=== PATIENT | female | born 1990 | race Caucasian/White ===

== ENCOUNTER → 2018-04-09 09:00 | Outpatient (CLI) | payer MEDICAID, SELFPAY ==
--- NOTE | 2018-04-09 09:00 | DT_ITS ---
This patient was seen during an EMR downtime April 09, 2018 - April 16, 2018. This patient may have a combination of paper and electronic documentation or all paper documentation. All documentation is viewable within the e-chart portion of [facility] for each patient visit.
[2018-04-24 13:54] LABS: HPV Reflexed? NOT INDICATED
== END ==
PROVIDERS: Visit Provider Nurse Practitioner Women's Health
DX: Z12.4 Encounter for screening for malignant neoplasm of cervix (principal)
CPT/HCPCS: 88175; G0145

== ENCOUNTER → 2018-05-02 09:26 | Outpatient (CLI) | payer MEDICAID, SELFPAY ==
--- NOTE | 2018-05-02 09:28 | US_ITS ---
STUDY: FIRST TRIMESTER OBSTETRICAL ULTRASOUND REASON FOR EXAM: Female, 27 years old. Pelvic pain and spotting with intercourse. LMP: 02/23/2018 TECHNIQUE: Transabdominal and transvaginal real-time examination with grayscale image documentation and Doppler color flow. PRIOR ULTRASOUND: None. FINDINGS: There is visualization of a single gestational sac in a normal intrauterine position. The mean sac diameter (MSD) measures 2.0, indicating an estimated gestational age (EGA) of 7 weeks, 0 days. The gestational sac is somewhat irregular in configuration. In addition to the yolk sac and pole that are identified there is an additional structure within the sac that extends from the wall measuring 0.9 x 1.5 cm this has an outer border similar to chorion and a hypoechoic nonvascular center. There is an additional hypoechoic area adjacent to the gestational sac measuring 2.2 x 0.9 x 0.6 cm consistent with a more typical of a subchorionic hemorrhage. There is a visualized yolk sac. The yolk sac measures 5.5 mm. There is visualization of the placenta. There is visualization of a live embryo. The crown-rump length (CRL) measures 0.61 cm, indicating an estimated gestational age (EGA) of 6 weeks, 3 days. There is demonstrated cardiac activity with a heart rate of 128 bpm. The estimated gestation age (EGA) by LMP is 9 weeks, 5 days. The estimated date of delivery (PITER) by LMP is 11/30/2018. The estimated gestation age (EGA) by US is 6 weeks, 5 days. The estimated date of delivery (PITER) by US is 12/21/2018. The uterus measures 10.6 x 7.8 x 6.7 cm. There is no demonstrated uterine fibroid. The cervix is closed. The right ovary measures 4.6 x 3.3 x 3.2 cm. There is a 3.1 x 2.6 x 1.4 cm complex cyst. There is no visualized right adnexal mass or complex lesion. The left ovary measures 2.8 x 2.1 x 1.4 cm. There is no left ovarian cyst. There is no visualized left adnexal mass or complex lesion. There is no fluid in the cul de sac. US/Transvaginal w/Preg US IMPRESSION: Single living intrauterine fetus of 6 weeks and 5 days by crown-rump length and gestational sac diameter with an PITER of 12/21/2018. heart rate 128 bpm. In addition to the visualized pole and yolk sac there is an additional that protrudes into the gestational sac measuring 0.9 x 1.5 cm, possibly a subchorionic hemorrhage. There is an additional hypoechoic area measuring 2.2 x 0.9 x 0.6 cm consistent with a more typical subchorionic hemorrhage. There is a 3.1 x 2.6 x 1.4 cm complex cyst of the right ovary. Normal left ovary. Minimal free fluid. No additional adnexal masses. Electronically Signed: Мария Dodd MD at 17:28 EDT , Service support ,
== END ==
PROVIDERS: Visit Provider Nurse Practitioner Women's Health
DX: R10.2 Pelvic and perineal pain (principal)
CPT/HCPCS: 76817

== ENCOUNTER → 2018-05-23 18:19 | Outpatient (CLI) | payer MEDICAID, SELFPAY ==
[2018-05-24 13:17] LABS: Chlamydia Trachomatis by PCR Negative (Negative)
[2018-05-24 13:18] LABS: Neisserai gonorrhoeae by PCR Negative (Negative); Probe Check PASS; Sample Adequacy Control PASS; Specimen Processing Control PASS
== END ==
PROVIDERS: Visit Provider Obstetrics & Gynecology
DX: Z34.81 Encounter for supervision of other normal pregnancy, first trimester (principal); Z34.90 Encounter for supervision of normal pregnancy, unspecified, unspecified trimester
CPT/HCPCS: 87086; 87491; 87591

== ENCOUNTER → 2018-06-20 11:31 | Outpatient (CLI) | payer MEDICAID, SELFPAY ==
[2018-06-20 12:39] LABS: Absolute Lymphocyte Count 1.89 X10^3/ul (0.83-4.51); Absolute Neutrophil Count 6.5 X10^3/uL (2.0-7.7); Basophil# 0.01 X10^3/uL; Basophil% 0.1 % (0-1); Eosinophil# 0.03 X10^3/uL; Eosinophils% 0.3 % (0-5); Hematocrit 33.3 % (37-47); Hemoglobin 11.4 g/dl (12.0-15.0); Lymphocyte # 1.89 X10^3/ul (4.0); Lymphocyte % 21.2 % (19-41); Mean Corp Hgb Conc 34.2 g/gl (32-36); Mean Corpuscular Hgb 31.5 pg (27.0-32.0); Mean Platelet Vol. 9.5 fl (6.2-12.0); Monocyte# 0.43 X10^3/uL; Monocyte% 4.8 % (0-10); Neutrophil # 6.52 X10^3/uL (2.7-7.7); Neutrophil % 73.3 % (47-70); Platelet Count 218 K/mm3 (150-450); RBC Distribution Width CV 12.6 % (11.6-14.6); RBC Distribution Width SD 40.9 fl (35.1-43.9); Red Blood Count 3.62 M/mm3 (4.2-5.4); White Blood Count 8.9 K/mm3 (4.4-11.0)
[2018-06-20 12:43] LABS: POSITIVE COUNT NO; POSITIVE DIFFERENTIAL NO; POSITIVE MORPHOLOGY NO
[2018-06-20 13:47] LABS: HIV - WCH Non-Reactive (Nonreactive); Rubella IgG 65.7 IU/mL
[2018-06-21 10:59] LABS: HEPATITIS B SURFACE AG Negative (Negative)
[2018-06-22 01:02] LABS: Rapid Plasmin Reagin (RPR) NONREACTIVE (NONREACTIVE)
== END ==
PROVIDERS: Visit Provider Obstetrics & Gynecology
DX: Z34.81 Encounter for supervision of other normal pregnancy, first trimester (principal)
CPT/HCPCS: 85025; 86592; 86703; 86762; 86850; 86900; 87340

== ENCOUNTER → 2018-07-19 12:41 | Outpatient (CLI) | payer MEDICAID, SELFPAY ==
[2018-07-22 03:06] LABS: AFP MoM Value 1.13 (.); AFP Value-EIA 51.9 ng/mL (.); Comment Report (.); DIA MoM Value 1.09 (.); DSR (By Age) 699 (.); DSR (Second Trimester) 10000 (.); Gestat. Age Based On As provided (.); Insulin Dep Diabetes No (.); hCG MoM 2.13 (.)
== END ==
PROVIDERS: Visit Provider Obstetrics & Gynecology
DX: Z82.0 Family history of epilepsy and other diseases of the nervous system (principal)
CPT/HCPCS: 36415; 82105; 82677; 84702; 86336

== ENCOUNTER → 2018-09-25 10:27 | Outpatient (CLI) | payer MEDICAID, SELFPAY ==
[2018-09-25 09:53] VITALS: BMI 29.5
[2018-09-25 10:59] LABS: ROM Internal Control Test YES-OK TO RESULT pt. (Internal QC); ROM Patient Test Negative (Negative)
== END ==
PROVIDERS: Visit Provider Nurse Practitioner Women's Health
DX: O42.90 Premature rupture of membranes, unspecified as to length of time between rupture and onset of labor, unspecified weeks of gestation (principal); Z3A.00 Weeks of gestation of pregnancy not specified
CPT/HCPCS: 84112

== ENCOUNTER 2018-11-19 18:40 | Outpatient (CLI) | payer MEDICAID, SELFPAY ==
[2018-11-14 10:47] VITALS: BMI 29.5
[2018-11-19 20:19] VITALS: BMI 30.1
[2018-11-19 20:52] LABS: Bacteria 0 SEEN /hpf (None Seen); Mucous, Urine 0 SEEN /hpf (<or=2+); Red Blood Cells-Urine 0 SEEN /hpf (0-5)
[2018-11-19 20:53] LABS: Color, Urine Straw (Yellow); Glucose, Dipstick Normal (Normal); Leukocyte Esterase-Dipstick Negative /ul (Negative); Nitrite-Dipstick Negative (Negative); Occult Blood-Urine Negative /ul (Negative); Protein-Dipstick Negative (Negative); Urine Bilirubin Dipstick Negative (Negative); Urine Clarity Clear (Clear); Urine Urobilinogen Normal (Normal); Urine pH 6.5 (5.0 - 8.0)
[2018-11-19 21:04] LABS: Ketone-Dipstick 150 mg/dl (Negative)
[2018-11-19 21:05] LABS: Squamous Epithelial Cells - UA 0-5 SEEN /hpf (5-10)
[2018-11-19 21:07] LABS: White Blood Cells 0-5 SEEN /hpf (0-5)
[2018-11-19] MEDS: Dextrose 5%-Lactated Ringers 1,000 ML 200 ML IV ×2 (22:06→23:10)
[2018-11-19 22:41] LABS: Absolute Lymphocyte Count 1.04 X10^3/ul (0.83-4.51); Absolute Neutrophil Count 8.3 X10^3/uL (2.0-7.7); Basophil# 0.01 X10^3/uL; Basophil% 0.1 % (0-1); Eosinophil# 0.01 X10^3/uL; Eosinophils% 0.1 % (0-5); Hemoglobin 10.9 g/dl (12.0-15.0); Lymphocyte # 1.04 X10^3/ul (4.0); Lymphocyte % 10.6 % (19-41); Mean Corpuscular Hgb 29.8 pg (27.0-32.0); Mean Corpuscular Volume 90.2 fL (81-99); Mean Platelet Vol. 9.9 fl (6.2-12.0); Monocyte# 0.37 X10^3/uL; Monocyte% 3.8 % (0-10); Neutrophil # 8.29 X10^3/uL (2.7-7.7); Neutrophil % 84.9 % (47-70); Platelet Count 168 K/mm3 (150-450); RBC Distribution Width CV 13.2 % (11.6-14.6); RBC Distribution Width SD 43.1 fl (35.1-43.9); Red Blood Count 3.66 M/mm3 (4.2-5.4); White Blood Count 9.8 K/mm3 (4.4-11.0)
[2018-11-19 22:42] LABS: POSITIVE COUNT NO; POSITIVE DIFFERENTIAL NO; POSITIVE MORPHOLOGY NO
[2018-11-19 23:15] LABS: Fibrinogen 439 mg/dl (203-444)
--- NOTE | 2018-11-20 01:44 | OB.TRI.NOTE ---
- Problem List (1) Vomiting Status: Acute (2) heart deceleration Status: Acute (3) Encounter for screening Status: Acute Comment: Negative QUAD marker screen - patient missed ech appt, nl anatomy scan (4) ASCUS favor benign Status: Acute (5) Family history of Willem-Sachs disease Status: Acute Comment: FOB is carrier- screen negative for patient (6) Tobacco use complicating Status: Acute Qualifiers: Comment: quit! (7) Supervision of normal Status: Acute Qualifiers: Comment: PRR PITER 12/23/18 Boy. PC Chay Chery Ethan boyfriend Vic (4 kids) History of Present Illness Date of Service: 11/20/18 Was patient seen by the physician?: Yes Reason For Visit: R/O LABOR Date of Service: 11/20/18 Final PITER: 12/23/18 Gestational age: 35 Weeks and 2 Days History of Present Illness: 27-year-old presents at 35 weeks with intractable nausea and vomiting throughout the day today. Her boyfriend was just diagnosed with influenza today. Patient states she had a low-grade temp at home but temperatures here are all normal. Patient is now able to tolerate clear liquids by mouth but had 2 questionable late decelerations on the monitor and therefore will be monitored overnight and will get some testing done in the morning and ultrasound. Patient denies any vaginal bleeding or loss of fluid admits good movement. She has some contractions. She denies any respiratory complaints Allergies Penicillins Adverse Reaction (Verified 11/19/18 20:22) Anaphylaxis amoxicillin Adverse Reaction (Severe, Uncoded 11/19/18 20:21) Anaphylaxis bactrim Adverse Reaction (Severe, Uncoded 11/19/18 20:21) Anaphylaxis ceclor Adverse Reaction (Severe, Uncoded 11/19/18 20:21) Anaphylaxis ciprofloxan Adverse Reaction (Severe, Uncoded 11/19/18 20:21) Anaphylaxis codiene Adverse Reaction (Severe, Uncoded 11/19/18 20:21) Anaphylaxis - Pertinent Past Medical History Surgical History: Past Surgical History (Last Reviewed 11/14/18 @ 10:47 by Yue Paez) Cyst, dermoid, leg Ear canal mass Pertinent Past Medical History: ROS: General: co low grade fever Telephone Service Adviser: see hpi GI: see hpi Laboratory Studies: Laboratory Tests 11/19/18 11/19/18 11/19/18 Range/Units 22:00 22:00 20:45 WBC 9.8 (4.4-11.0) K/mm3 RBC 3.66 L (4.2-5.4) M/mm3 Hgb 10.9 L (12.0-15.0) g/dl Hct 33.0 L (37-47) % MCV 90.2 (81-99) fL MCH 29.8 (27.0-32.0) pg MCHC 33.0 (32-36) g/gl RDW 13.2 (11.6-14.6) % RDW Differential 43.1 (35.1-43.9) fl Plt Count 168 (150-450) K/mm3 MPV 9.9 (6.2-12.0) fl Immature Gran % (Auto) 0.500 (0.0-0.9) % Neut % (Auto) 84.9 H (47-70) % Lymph % (Auto) 10.6 L (19-41) % [place] % (Auto) 3.8 (0-10) % Eos % (Auto) 0.1 (0-5) % Baso % (Auto) 0.1 (0-1) % Absolute Neuts (auto) 8.3 H (2.0-7.7) X10^3/uL Absolute Lymphs (auto) 1.04 (0.83-4.51) X10^3/ul Total Counted Not Reportable Fibrinogen 439 (203-444) mg/dl Urine Color Straw (Yellow) Urine Clarity Clear (Clear) Urine pH 6.5 (5.0 - 8.0) Ur Specific [place] 1.010 (1.002-1.030) Urine Protein Negative (Negative) mg/dl Urine Glucose (UA) Normal (Normal) mg/dl Urine Ketones 150 H (Negative) mg/dl Urine Occult Blood Negative (Negative) /ul Urine Nitrite Negative (Negative) Urine Bilirubin Negative (Negative) mg/dL Urine Urobilinogen Normal (Normal) mg/dl Ur Leukocyte Esterase Negative (Negative) /ul Urine RBC 0 SEEN (0-5) /hpf Urine WBC 0-5 SEEN (0-5) /hpf Ur Squamous Epith Cells 0-5 SEEN (5-10) /hpf Urine Bacteria 0 SEEN (None Seen) /hpf Urine Mucus 0 SEEN (<or=2+) /hpf Review of Systems Constitutional: Reports: Fever Gastrointestinal: Reports: Abdominal Pain, Nausea, Vomiting Genitourinary: Denies: Dysuria Physical Exam General: Alert, Cooperative, No apparent distress Cardiovascular: Regular rate Abdomen: Soft, Non Tender, Gravid Cervix Dilation (cm): 1 NST - FHR Rate Baby A Baseline: 140 Variability:: Moderate Accelerations:: 15 x 15 Decelerations:: Late NST Reactive:: Yes FHR Category:: Category I Uterine Activity:: irregular Impression/Plan 27 yo @ 35w5d presents with nausea and vomiting, influenza exposure, right-sided abdominal pain Monitor patient overnight due to decelerations but overall reassuring tracing. BPP in the morning. Recommend Tamiflu prophylaxis and influenza vaccine. Patient declining influenza vaccine at this time. IV fluids given and antiemetics offered
[2018-11-20] MEDS: Lactated Ringers 1,000 ML 200 ML IV ×2 (03:01→07:43)
--- NOTE | 2018-11-20 21:25 | US_ITS ---
STUDY: OBSTETRICAL ULTRASOUND - BIOPHYSICAL PROFILE REASON FOR EXAM: Female, 27 years old. Nonreactive nonstress test. Spotting yesterday. Nausea and vomiting. LMP: February 23, 2018. PRIOR ULTRASOUND: First trimester OB ultrasound May 02, 2018. TECHNIQUE: Transabdominal TECHNICAL QUALITY: Adequate. FINDINGS: There is a single intrauterine fetus. The fetus is in a cephalic presentation. There is demonstrated cardiac activity with a heart rate of 150 bpm. There is a normal amniotic fluid volume. The largest amniotic fluid pocket measures 3.65 cm. The amniotic fluid index (LINO) is 11.2 cm. The placenta is fundal in location. There are Grade 2 placental changes. The cervical length is 3.7 cm. The cervix is closed. Age by LMP: 38 weeks, 4 days. PITER by LMP: November 30, 2018. age by prior US: 35 weeks, 4 days. PITER by prior US: December 21, 2018. BIOPHYSICAL PROFILE: Breathing Movements (FBM): 2 Gross Body Movements (GBM): 2 Tone (FT): 2 Amniotic Fluid Volume (AFV): 2 TOTAL SCORE: 8 / 8 US/Biophysical Profile IMPRESSION: Normal biophysical profile of 8/8. Electronically Signed: Alcides Goncalves MD at 12:18 EST , Service support ,
== END 2018-11-20 12:00 | disposition home or self-care (01) ==
LOC: WPOUT 18:49 → WP 18:49
PROVIDERS: Visit Provider Obstetrics & Gynecology
DX: O26.893 Other specified pregnancy related conditions, third trimester (principal); R11.2 Nausea with vomiting, unspecified; R10.9 Unspecified abdominal pain; Z20.828 Contact with and (suspected) exposure to other viral communicable diseases; O76 Abnormality in fetal heart rate and rhythm complicating labor and delivery; O99.333 Smoking (tobacco) complicating pregnancy, third trimester; F17.200 Nicotine dependence, unspecified, uncomplicated; Z3A.35 35 weeks gestation of pregnancy
CPT/HCPCS: 96360; 96361 ×12; 36415; 59025; 59050; 76818; 81001; 85025; 85384; 87804; 99218; J7120; G0378

== ENCOUNTER → 2018-11-28 14:11 | Outpatient (CLI) | payer MEDICAID, SELFPAY ==
[2018-11-28 09:21] VITALS: BMI 30.1
--- OUTSIDE RECORDS SUMMARY | 2019-01-30 14:42 | XMS RPT_ITS ---
:1990 Author Organization OHIP Support Name Relationship Address Phone VIC LENNON Unavailable [address] + [place] [address] UE Unavailable Unavailable Unavailable VIC LENNON Unavailable [address] + [place] [address] UE Unavailable Unavailable Unavailable VIC LENNON Unavailable [address] + [place] [address] UE Unavailable Unavailable Unavailable VIC LENNON Unavailable [address] + [place] [address] UE Unavailable Unavailable Unavailable VIC LENNON Unavailable [address] + [place] [address] UE Unavailable Unavailable Unavailable VIC LENNON Unavailable [address] + [place] [address] UE Unavailable Unavailable Unavailable VIC LENNON Unavailable [address] + [place] [address] UE Unavailable Unavailable Unavailable VIC LENNON Unavailable [address] + [place] [address] UE Unavailable Unavailable Unavailable VIC LENNON Unavailable [address] + [place] [address] UE Unavailable Unavailable Unavailable JOANNA LENNON Unavailable [address] + [place] [address] LAKESHIA REBOLLAR Unavailable [address] + [place] [address] VIC LENNON Unavailable [address] + [place] [address] UE Unavailable Unavailable Unavailable VIC LENNON Unavailable [address] + [place] [address] UE Unavailable Unavailable Unavailable VIC LENNON Unavailable [address] + [place] [address] UE Unavailable Unavailable Unavailable SAJI, VIC Unavailable [address] + [place] [address] UE Unavailable Unavailable Unavailable SAJI VIC Unavailable [address] + [place] [address] UE Unavailable Unavailable Unavailable SAJI, VIC Unavailable [address] + [place] [address] UE Unavailable Unavailable Unavailable SAJI VIC Unavailable [address] + [place] [address] UE Unavailable Unavailable Unavailable SAJI, VIC Unavailable [address] + [place] [address] UE Unavailable Unavailable Unavailable SAJI, VIC Unavailable [address] + [place] [address] UE Unavailable Unavailable Unavailable SAJI, VIC Unavailable [address] + [place] [address] UE Unavailable Unavailable Unavailable SAJI, VIC Unavailable [address] + [place] [address] UE Unavailable Unavailable Unavailable UE Unavailable Unavailable Unavailable Care Team Providers Name Role Phone Apolinar Soriano Attending Unavailable No Doctor Assigned, Nodr Primary Care Unavailable Pal Garcia Admitting Unavailable Pal Garcia Attending Unavailable No Doctor Assigned, Nodr Primary Care Unavailable Apolinar Soriano Attending Unavailable No Doctor Assigned, Nodr Primary Care Unavailable No Doctor Assigned, Nodr Primary Care Unavailable Aquiles Corley Admitting Unavailable Aquiles Corley Attending Unavailable No Doctor Assigned, Nodr Primary Care Unavailable Sokari, Telemate Admitting Unavailable Sofrancisco, Telemate Attending Unavailable LYSSA TITUS Attending Unavailable MILA GR Referring Unavailable NO PRIMARY CARE, Primary Care Unavailable Mila Gr Attending Unavailable Mila Gr Attending Unavailable Mila Gr Attending Unavailable Mila Gr Attending Unavailable Mila Gr Consulting Unavailable Mila Gr Attending Unavailable Marissa Gamble Attending Unavailable Tye Marissa Referring Unavailable CottontownMarissa Attending Unavailable CottontownMarissa sneed Attending Unavailable Tye Marissa Referring Unavailable Primay Care Physicia, No Primary Care Unavailable Marcanthony, Mila Attending Unavailable Primay Care Physicia, No Referring Unavailable Primay Care Physicia, No Primary Care Unavailable Marcanthony, Mila Attending Unavailable Primay Care Physicia, No Primary Care Unavailable Marcanthony, Mila Referring Unavailable [place], Marissa Attending Unavailable Primay Care Physicia, No Referring Unavailable Primay Care Physicia, No Primary Care Unavailable Marcanthony, Mila Attending Unavailable Primay Care Physicia, No Referring Unavailable Marcanthony, Mila Attending Unavailable Marcanthony, Mila Referring Unavailable Marcanthony, Mila Attending Unavailable Primay Care Physicia, No Referring Unavailable Primay Care Physicia, No Primary Care Unavailable Marcanthony, Mila Attending Unavailable Primay Care Physicia, No Primary Care Unavailable Marcanthony, Mila Attending Unavailable Primay Care Physicia, No Referring Unavailable Marcanthony, Mila Attending Unavailable Primay Care Physicia, No Referring Unavailable Primay Care Physicia, No Primary Care Unavailable Marcanthony, Mila Attending Unavailable Marcanthony, Mila Referring Unavailable Primay Care Physicia, No Primary Care Unavailable Tye, Marissa Attending Unavailable Primay Care Physicia, No Referring Unavailable Marcanthony, Mila Attending Unavailable Primay Care Physicia, No Referring Unavailable Tye, Marissa Attending Unavailable PROBLEMS PROBLEMS DATE TYPE CONDITION / CODE ATTENDING STATUS SOURCE 11/28/2018 Unknown Z34.90 - Encounter Marcanthony, Active [place] for supervision of [facility] normal , Hospital unspecified, Repository unspecified trimester / Z34.90(ICD-10) 11/14/2018 Unknown O99.333 - Smoking Marcanthony, Active [place] (tobacco) [facility] complicating Hospital , third Repository trimester / O99.333(ICD-10) 11/14/2018 Unknown Z82.0 - Family Marcanthony, Active [place] history of [facility] epilepsy and other Hospital diseases of the Repository nervous system / Z82.0(ICD-10) 11/14/2018 Unknown Z34.83 - Encounter Marcanthony, Active [place] for supervision of [facility] other normal Hospital , third Repository trimester / Z34.83(ICD-10) 10/22/2018 Unknown Z36.9 - Encounter Marcanthony, Active [place] for [facility] screening, Hospital unspecified / Repository Z36.9(ICD-10) 09/25/2018 Unknown O99.332 - Smoking Jose Alfredo, Active [place] (tobacco) [facility] complicating Hospital , second Repository trimester / O99.332(ICD-10) 09/25/2018 Unknown Z34.82 - Encounter Jose Alfredo, Active [place] for supervision of [facility] other normal Hospital , second Repository trimester / Z34.82(ICD-10) 09/25/2018 Unknown O42.90 - Premature Jose Alfredo, Active [place] rupture of [facility] membranes, Hospital unspecified as to Repository length of time between rupture and onset of labor, unspecified weeks of gestation / O42.90(ICD-10) 05/30/2018 Unknown Z12.4 - Encounter Marissa Gamble Active [place] for screening for Community malignant neoplasm [facility] / Repository Z12.4(ICD-10) PROCEDURES PROCEDURES No Procedure Records FoundRESULTS RESULTS Observed: 11/28/2018 Status: F Source: [place] CULTURE, GROUP B 2:[address] [facility] STREPTOCOCCUS REPOSITORY [place] Culture Group B Beta Streptococcus is not isolated. Performed By: #### M100.1800 #### [facility] [address] [place], [address] AUDIT CLERK OFFICE VISIT Observed: 11/28/2018 Status: F Source: [place] REPORT 9:[address] [facility] REPOSITORY [facility] [address] [place] [address] OFFICE VISIT Date of Service: 11/28/18 MR#: [id number] Acct: [id number] Name: KETURAHLAKESHIA Sienna Rep #: [id number] : 1990 Provider: Mlia Gr MD Age/Sex: 27/F Location: [facility] Status: Signed Intake Vital Signs11/28/18 Body Mass Index (BMI) 30.1 11/28/18 Height 5 ft 11/28/18 Weight: 159 lb 4 oz 11/28/18 Body Mass Index (BMI) 31.1 11/28/18 Blood Pressure 114/60 Intake Visit Reasons: OB Chief Complaint: est ob Truck Despatcher Required: No Is patient in pain?: No Allergies Penicillins Adverse Reaction (Verified 11/28/18 09:20) Anaphylaxis amoxicillin Adverse Reaction (Severe, Uncoded 11/28/18 09:20) Anaphylaxis bactrim Adverse Reaction (Severe, Uncoded 11/28/18 09:20) Anaphylaxis ceclor Adverse Reaction (Severe, Uncoded 11/28/18 09:20) Anaphylaxis ciprofloxan Adverse Reaction (Severe, Uncoded 11/28/18 09:20) Anaphylaxis codiene Adverse Reaction (Severe, Uncoded 11/28/18 09:20) Anaphylaxis Medications vitamin,calcium,uhljyawe-syzl-zekxz acid tablet 1 tab PO QDAY 05/23/18 [History Confirmed 11/28/18] Last Menstral Period: 02/23/18 Zika: Zika virus screening: Negative : No PFSH PFSH Surgical History Cyst, dermoid, leg (Acute) Ear canal mass (Acute) Family History Grandmother Cancer female area. Pt. not sure of where Mother Cancer cancerous cells in uterus Social History current occupational status: unemployed Smoking Status: Light Smoker (<10/day) alcohol intake: former year quit: 2018 substance use type: does not use caffeine: Yes Type: coffee Number of servings: 1 what type of physical activity do you participate in: bicycling, weight training frequency: 3-4 times per week seatbelt use: always do you feel safe at home: Yes additional social history: Boyfriend - Vic Pregancy History 4 Elective abortions Hx Para 3 Spontaneous abortions Past Pregnancies Del. DatName [place]/WeeksOutcome Route [facility] LocaProviderFOB e ht en ia tn Unknown Vik live birNSVD 6 lbs 02-03-07 th - ful l term HPI OB: Details: LAKESHIA REBOLLAR is a 27 year old who presents for routine OB visit. OB Visit PITER Calculator Estimated Delivery Date 12/21/18 Based on Ultrasound Date 05/02/18 Current WG 36w 5d Number 1 Expected Delivery Route/Plan Specific Issue/Plans flu vaccine: declines tdap vaccine: declines rhogam: na LARC form signed: declined labor support person: Vic only if available pain management: natural cut cord/dad catch: yes : yes PP control planned: considering tubal, porbably OCP special requests: [] Initial Weight: 120 lb Date Weight BP Urine PrFHR FuHt Pres MoCTX DilationFetal StVisit NoProviderComments E ot v te [place] G Effac lucose ed Visit Notes Visit Date: 11/28/18 no vb lof good fm n oregular ctx Mila Gr MD on 11/28/18 Visit Date: 11/14/18 no vb lof good fm no regular ctx Mila Gr MD on 11/14/18 Visit Date: 10/22/18 No visit notes to display Visit Date: 09/25/18 no vb questionable lof fell onto porch. no regular ctx. Mila Gr MD on 09/25/18 Visit Date: 08/23/18 Doing well. No VB, LOF. Marissa Gamble NP-C on 08/23/18 Visit Date: 07/19/18 plan quad screen and beverly sachs screening Mila Gr MD on 07/19/18 Visit Date: 06/20/18 no vb cramping doing well Mila Gr MD on 06/24/18 Visit Date: 05/30/18 Here for recurring vaginal bleeding although none today. Refusing vaginal exam. GAMALIEL HugoC on 05/30/18 Visit Date: 05/23/18 No visit notes to display ACOG First Trimester First Trimester: Desire for , Alcohol, Tobacco Cessation, Illicit/Recreational Drug/Substance Use, Intimate Partner Violence, Barriers to care, Unstable Housing, Communication Barriers, Environmental/Work Hazards, Anticipated Course of Care, Toxoplasmosis Precations, Use of Any medications, Sexual activity, Exercise, Dental Care, Sauna/Hot tub use, Seat Belt use, Childbirth classes/Hospital facilities, , Travel, Indications for US and Screening for Aneuploidy Diagnostics Diagnostics Labs Blood Type O POSITIVE 06/20/18 Antibody Screen NEGATIVE 06/20/18 Hct 33.0 % (37-47) L 11/19/18 Hgb 10.9 g/dl (12.0-15.0) L 11/19/18 Rubella IgG Antibody 65.7 IU/mL 06/20/18 RPR NONREACTIVE (NONREACTIVE) 06/20/18 Hep Bs Antigen Negative (Negative) 06/20/18 Chlam trachomat DNA PCR Negative (Negative) 05/24/18 N.gonorrhoeae DNA (PCR) Negative (Negative) 05/24/18 Miscellaneous Test 07/19/18 Details: HIV: Urine Culture: Sequential Screen: NIPT Screen: ROS Const Denies fever(s) GI Denies abdominal pain, Reports as per HPI Denies vaginal discharge, Denies abnormal vaginal bleeding, Reports as per HPI Exam Const General: healthy appearing, comfortable, no acute distress GI Inspection: normal to inspection Palpation: soft, nontender Assessment AND Plan Problems 1. Encounter for screening Z36.9 Negative QUAD marker screen - patient missed ech appt, nl anatomy scan 2. ASCUS favor benign 3. Family history of Beverly-Sachs disease Z82.0 FOB is carrier- screen negative for patient 4. complicated by tobacco use in third trimester O99.330 quit! 5. Encounter for supervision of other normal in third trimester Z34.90 PRR PITER 12/23/18 Boy. PC Chay Chery, Fortunato boyfriend Vic (4 kids) Plan movement and labor precautions reviewed. ACOG trimester education reviewed and updated. see problem list details for updated plan management information and see below for orders placed at this visit. [place] appropriate handout given. Orders Orders: Coding Level of Care Code Off vis,est,level 3 Diagnoses Encounter for screening Z36.9 ASCUS favor benign Family history of Beverly-Sachs disease Z82.0 complicated by tobacco use in third trimester O99.330 Encounter for supervision of other normal in third trimester Z34.90 11/28/18 0956 <Electronically signed by Mila Gr MD> Date Mila Gr MD Cosigner Signature: Date (if applicable) CC: Observed: 11/19/2018 Status: F Source: [place] INFLUENZA A+B (RAPID 10:10 PM [facility]) REPOSITORY FLU A/B Rapid Negative test results should be confirmed with FLU PANEL MOLECULAR if indicated. Influenza Ag, Direct Presumptive NEGATIVE for Influenza A/B Antigen (See Note) Performed By: #### M101.0101 #### [facility] [address] [place], [address] CBC W/DIFF, AUTOMATED Collected: 11/19/2018 Status: F Source: [place] 10:[address] [facility] REPOSITORY TYPE CODE TESTS RESULT OUT OF RANGE REFERENCE UNITS LAB L100.1000 4.4-11.0 K/mm3 Normal WBC 9.8 LAB L100.1200 4.2-5.4 M/mm3 Low RBC 3.66 LAB L100.1300 12.0-15.0 g/dl Low HGB 10.9 LAB L100.1400 37-47 % Low HCT 33.0 LAB L100.1500 81-99 fL Normal MCV 90.2 LAB L100.1600 27.0-32.0 pg Normal MCH 29.8 LAB L100.1700 32-36 g/gl Normal MCHC 33.0 LAB L100.1810 11.6-14.6 % Normal RDW CV 13.2 LAB L100.1820 35.1-43.9 fl Normal RDW SD 43.1 LAB L100.1900 150-450 K/mm3 Normal PLT 168 LAB L100.2000 6.2-12.0 fl Normal MPV 9.9 LAB L100.2100 47-70 % High NEUT% 84.9 LAB L100.2200 19-41 % Low LY% 10.6 LAB L100.2300 0-10 % Normal MONO% 3.8 LAB L100.2400 0-5 % Normal EO% 0.1 LAB L100.2500 0-1 % Normal BASO% 0.1 LAB L100.2550 0.0-0.9 % Normal IM GRAN % 0.500 Result Comment: IG% - Immature Granulocytes (promyelocytes, myelocytes and metamyelocytes) > 1% indicates that a LEFT SHIFT is Present. LAB L100.2620 2.0-7.7 X10 3/uL High Absolute Neut 8.3 LAB L100.2720 0.83-4.51 X10 3/ul Normal Absolute Lymph 1.04 Performed By: #### L100.0100, L300.4700 #### [facility] [address] [place], [address] FIBRINOGEN Collected: 11/19/2018 Status: F Source: [place] 10:[address] [facility] REPOSITORY TYPE CODE TESTS RESULT OUT OF RANGE REFERENCE UNITS LAB L300.4700 203-444 mg/dl Normal FIB 439 Performed By: #### L100.0100, L300.4700 #### [facility] [address] [place], [address] BIOPHYSICAL PROFILE Observed: 11/19/2018 Status: F Source: [place] 9:[address] [facility] REPOSITORY [facility] Imaging Services [address] [place] [address] Biophysical Profile MR#: [id number] Acct: [id number] Name: LAKESHIA REBOLLAR Rep #: [id number] : 1990 F 27 From: Cesar Goncalves MD PCP: Status: REG CLI Study: Biophysical Profile Date of Exam: 11/20/18 Exam# [id number] Ordering Dr: Mila Gr MD STUDY: OBSTETRICAL ULTRASOUND - BIOPHYSICAL PROFILE REASON FOR EXAM: Female, 27 years old. Nonreactive nonstress test. Spotting yesterday. Nausea and vomiting. LMP: February 23, 2018. PRIOR ULTRASOUND: First trimester OB ultrasound May 02, 2018. TECHNIQUE: Transabdominal TECHNICAL QUALITY: Adequate. FINDINGS: There is a single intrauterine fetus. The fetus is in a cephalic presentation. There is demonstrated cardiac activity with a heart rate of 150 bpm. There is a normal amniotic fluid volume. The largest amniotic fluid pocket measures 3.65 cm. The amniotic fluid index (LINO) is 11.2 cm. The placenta is fundal in location. There are Grade 2 placental changes. The cervical length is 3.7 cm. The cervix is closed. Age by LMP: 38 weeks, 4 days. PITER by LMP: November 30, 2018. age by prior US: 35 weeks, 4 days. PITER by prior US: December 21, 2018. BIOPHYSICAL PROFILE: Breathing Movements (FBM): 2 Gross Body Movements (GBM): 2 Tone (FT): 2 Amniotic Fluid Volume (AFV): 2 TOTAL SCORE: 8 / 8 US/Biophysical Profile IMPRESSION: Normal biophysical profile of 88. Electronically Signed: Alcides Goncalves MD at 12:18 EST , Service support , CC: Mila Gr MD Business Information Manager: Signed URINALYSIS, COMPLETE Collected: 11/19/2018 Status: F Source: [place] 8:[address] [facility] REPOSITORY Order Comment: How was Urine Obtained? CLEAN CATCH TYPE CODE TESTS RESULT OUT OF RANGE REFERENCE UNITS LAB L400.3000 Yellow COLOR Normal Straw LAB L400.3050 Clear Normal CLARITY Clear LAB L400.3200 Normal mg/dl Normal GLUCOSE, UR Normal LAB L400.3300 Negative mg/dL Normal BILIRUBIN URINE Negative LAB L400.3400 Negative mg/dl High KETONE UR 150 Result Comment: CRITICAL VALUE *H RESULTS CALLED TO Cabrera GARCIA 11/19/182101 Candida Howard. REPORT READ BACK BY SAME. LAB L400.3465 1.002-1.030 Normal SP.GR. DIPSTX 1.010 LAB L400.3550 5.0 - 8.0 pH Normal UR 6.5 LAB L400.3600 Negative mg/dl Normal PROT DIPSTX Negative LAB L400.3700 Normal mg/dl Normal UROBILI Normal LAB L400.3750 Negative Normal NITRITE UR Negative LAB L400.3780 Negative /ul Normal OCCULT Negative BLOOD-UR LAB L400.3800 Negative /ul Normal LEUK ESTERASE Negative LAB L400.4050 0-5 /hpf Normal WBC 0-5 SEEN LAB L400.4100 0-5 /hpf 0 Normal RBC-UA SEEN LAB L400.4150 5-10 /hpf Normal SQUAM EPI 0-5 SEEN LAB L400.4300 None Seen /hpf 0 Normal BACTERIA SEEN LAB L400.4350 <or=2+ /hpf 0 Normal MUCUS, URINE SEEN Performed By: #### L400.0001 #### [facility] [address] [place], [address] AUDIT CLERK OFFICE VISIT Observed: 11/14/2018 Status: F Source: [place] REPORT 11:[address] [facility] REPOSITORY [facility] [address] [place] [address] OFFICE VISIT Date of Service: 11/14/18 MR#: [id number] Acct: [id number] Name: LAKESHIA REBOLLAR Rep #: [id number] : 1990 Provider: Mila Gr MD Age/Sex: 27/F Location: [facility] Status: Signed Intake Vital Signs11/14/18 Body Mass Index (BMI) 29.5 11/14/18 Height 5 ft 11/14/18 Weight: 159 lb 11/14/18 Body Mass Index (BMI) 31.0 11/14/18 Blood Pressure 110/64 10/22/18 Body Mass Index (BMI) 29.5 Intake Visit Reasons: ob - refused sooner appt Chief Complaint: est ob Truck Despatcher Required: No Is patient in pain?: No Allergies amoxicillin Adverse Reaction (Severe, Uncoded 11/14/18 10:46) vomiting and swelling bactrim Adverse Reaction (Severe, Uncoded 11/14/18 10:46) vomiting and swelling ceclor Adverse Reaction (Severe, Uncoded 11/14/18 10:46) vomiting and swelling ciprofloxan Adverse Reaction (Severe, Uncoded 11/14/18 10:46) vomiting and swelling codiene Adverse Reaction (Severe, Uncoded 11/14/18 10:46) vomiting and swelling Medications vitamin,calcium,wvivstau-drtt-yddge acid tablet 1 tab PO QDAY 05/23/18 [History Confirmed 11/14/18] Last Menstral Period: 02/23/18 Zika: Zika virus screening: Negative : No PFSH PFSH Surgical History Cyst, dermoid, leg (Acute) Ear canal mass (Acute) Family History Grandmother Cancer female area. Pt. not sure of where Mother Cancer cancerous cells in uterus Social History current occupational status: unemployed Smoking Status: Light Smoker (<10/day) alcohol intake: former year quit: 2018 substance use type: does not use caffeine: Yes Type: coffee Number of servings: 1 what type of physical activity do you participate in: bicycling, weight training frequency: 3-4 times per week seatbelt use: always do you feel safe at home: Yes additional social history: Boyfriend - Vic Pregancy History 4 Elective abortions Hx Para 3 Spontaneous abortions Past Pregnancies Del. DatName GA/WeeksOutcome Route Bth WeigInfant GLabor LgAnesthesDel LocaProviderFOB e ht en ia tn Unknown Vik live birNSVD 6 lbs 02-03-07 th - ful l term HPI ob - refused sooner appt : Details: LAKESHIA REBOLLAR is a 27 year old who presents for routine OB visit. OB Visit PITER Calculator Estimated Delivery Date 12/21/18 Based on Ultrasound Date 05/02/18 Current WG 34w 5d Number 1 Expected Delivery Route/Plan Specific Issue/Plans flu vaccine: declines tdap vaccine: declines rhogam: na LARC form signed: declined labor support person: Vic only if available pain management: natural cut cord/dad catch: yes : yes PP control planned: considering tubal, porbably OCP special requests: [] Initial Weight: 120 lb Date Weight BP Urine PrFHR FuHt Pres MoCTX DilationFetal StVisit NoProviderComments E ot v te [place] G Effac lucose ed Visit Notes Visit Date: 11/14/18 no vb lof good fm no regular ctx Mila Gr MD on 11/14/18 Visit Date: 10/22/18 No visit notes to display Visit Date: 09/25/18 no vb questionable lof fell onto porch. no regular ctx. Mila Gr MD on 09/25/18 Visit Date: 08/23/18 Doing well. No VB, LOF. INGRID Hugo on 08/23/18 Visit Date: 07/19/18 plan quad screen and beverly sachs screening Mila Gr MD on 07/19/18 Visit Date: 06/20/18 no vb cramping doing well Mila Gr MD on 06/24/18 Visit Date: 05/30/18 Here for recurring vaginal bleeding although none today. Refusing vaginal exam. INGRID Hugo on 05/30/18 Visit Date: 05/23/18 No visit notes to display ACOG First Trimester First Trimester: Desire for , Alcohol, Tobacco Cessation, Illicit/Recreational Drug/Substance Use, Intimate Partner Violence, Barriers to care, Unstable Housing, Communication Barriers, Environmental/Work Hazards, Anticipated Course of Care, Toxoplasmosis Precations, Use of Any medications, Sexual activity, Exercise, Dental Care, Sauna/Hot tub use, Seat Belt use, Childbirth classes/Hospital facilities, , Travel, Indications for US and Screening for Aneuploidy Diagnostics Diagnostics Labs Blood Type O POSITIVE 06/20/18 Antibody Screen NEGATIVE 06/20/18 Hct 33.3 % (37-47) L 06/20/18 Hgb 11.4 g/dl (12.0-15.0) L 06/20/18 Obstetrics Ultrasound 05/02/18 Rubella IgG Antibody 65.7 IU/mL 06/20/18 RPR NONREACTIVE (NONREACTIVE) 06/20/18 Hep Bs Antigen Negative (Negative) 06/20/18 Chlam trachomat DNA PCR Negative (Negative) 05/24/18 N.gonorrhoeae DNA (PCR) Negative (Negative) 05/24/18 Miscellaneous Test 07/19/18 Details: HIV: Urine Culture: Sequential Screen: NIPT Screen: ROS Const Denies fever(s) Denies vaginal discharge, Denies abnormal vaginal bleeding, Reports as per HPI Exam Const General: healthy appearing, comfortable, no acute distress GI Inspection: normal to inspection Palpation: soft, nontender Results [id number] Office Urine Glucose Negative Last Edit by Yue Paez on 11/14/18 10:50 Office Urine Protein Negative Last Edit by Yue Paez on 11/14/18 10:50 Assessment AND Plan Problems 1. Encounter for supervision of other normal in third trimester Z34.83 PRR PITER 12/23/18 Boy. Chay Matthews Ethan boyfriend Vic (4 kids) 2. complicated by tobacco use in third trimester O99.333 quit! 3. Family history of Beverly-Sachs disease Z82.0 FOB is carrier- screen negative for patient Plan ACOG trimester education reviewed and updated. see problem list details for updated plan management information and see below for orders placed at this visit. [place] appropriate handout given.p Orders Orders: Coding Level of Care Code OB Routine Diagnoses Encounter for supervision of other normal in third trimester Z34.83 Normal : other normal Trimester: third trimester complicated by tobacco use in third trimester O99.333 Trimester: third trimester Family history of Beverly-Sachs disease Z82.0 11/14/18 1108 <Electronically signed by Mila Gr MD> Date Mila Gr MD Cosigner Signature: Date (if applicable) CC: AUDIT CLERK OFFICE VISIT Observed: 10/22/2018 Status: F Source: [place] REPORT 9:[address] [facility] REPOSITORY [facility] [address] [place] [address] OFFICE VISIT Date of Service: 10/22/18 MR#: [id number] Acct: [id number] Name: LAKESHIA REBOLLAR [place] Rep #: [id number] : 1990 Provider: Mila Gr MD Age/Sex: 27/F Location: [facility] Status: Signed Intake Vital Signs10/22/18 Height 5 ft Intake Visit Reasons: OB Chief Complaint: est ob Truck Despatcher Required: No Is patient in pain?: No Allergies amoxicillin Adverse Reaction (Severe, Uncoded 10/22/18 09:16) vomiting and swelling bactrim Adverse Reaction (Severe, Uncoded 10/22/18 09:16) vomiting and swelling ceclor Adverse Reaction (Severe, Uncoded 10/22/18 09:16) vomiting and swelling ciprofloxan Adverse Reaction (Severe, Uncoded 10/22/18 09:16) vomiting and swelling codiene Adverse Reaction (Severe, Uncoded 10/22/18 09:16) vomiting and swelling Medications vitamin,calcium,tbrknixv-jbji-vvzhw acid tablet 1 tab PO QDAY 05/23/18 [History Confirmed 10/22/18] Last Menstral Period: 02/23/18 Zika: Zika virus screening: Negative : No PFSH PFSH Surgical History Cyst, dermoid, leg (Acute) Ear canal mass (Acute) Family History Grandmother Cancer female area. Pt. not sure of where Mother Cancer cancerous cells in uterus Social History current occupational status: unemployed Smoking Status: Light Smoker (<10/day) alcohol intake: former year quit: 2017 substance use type: does not use caffeine: Yes Type: coffee Number of servings: 1 what type of physical activity do you participate in: bicycling, weight training frequency: 3-4 times per week seatbelt use: always do you feel safe at home: Yes additional social history: Boyfriend - Vic Pregancy History 4 Elective abortions Hx Para 3 Spontaneous abortions Past Pregnancies Del. DatName GA/WeeksOutcome Route [facility] LocaProviderFOB e ht en ia tn Unknown Vik live birNSVD 6 lbs 02-03-07 th - ful l term HPI OB: Details: LAKESHIA REBOLLAR is a 27 year old who presents for routine OB visit. OB Visit PITER Calculator Estimated Delivery Date 12/21/18 Based on Ultrasound Date 05/02/18 Current WG 31w 3d Number 1 Expected Delivery Route/Plan Specific Issue/Plans flu vaccine: declines tdap vaccine: declines rhogam: na LARC form signed: declined labor support person: Vic only if available pain management: natural cut cord/dad catch: yes : yes PP control planned: considering tubal, porbably OCP special requests: [] Initial Weight: 120 lb Date Weight BP Urine PrFHR FuHt Pres MoCTX DilationFetal StVisit NoProviderComments E ot v te GA G Effac lucose ed Visit Notes Visit Date: 10/22/18 No visit notes to display Visit Date: 09/25/18 no vb questionable lof fell onto porch. no regular ctx. Mila Gr MD on 09/25/18 Visit Date: 08/23/18 Doing well. No VB, LOF. INGRID Hugo on 08/23/18 Visit Date: 07/19/18 plan quad screen and beverly sac screening Mila Gr MD on 07/19/18 Visit Date: 06/20/18 no vb cramping doing well Mila Gr MD on 06/24/18 Visit Date: 05/30/18 Here for recurring vaginal bleeding although none today. Refusing vaginal exam. INGRID Hugo on 05/30/18 Visit Date: 05/23/18 No visit notes to display ACOG First Trimester First Trimester: Desire for , Alcohol, Tobacco Cessation, Illicit/Recreational Drug/Substance Use, Intimate Partner Violence, Barriers to care, Unstable Housing, Communication Barriers, Environmental/Work Hazards, Anticipated Course of Care, Toxoplasmosis Precations, Use of Any medications, Sexual activity, Exercise, Dental Care, Sauna/Hot tub use, Seat Belt use, Childbirth classes/Hospital facilities, , Travel, Indications for US and Screening for Aneuploidy Diagnostics Diagnostics Labs Blood Type O POSITIVE 06/20/18 Antibody Screen NEGATIVE 06/20/18 Hct 33.3 % (37-47) L 06/20/18 Hgb 11.4 g/dl (12.0-15.0) L 06/20/18 Obstetrics Ultrasound 05/02/18 Rubella IgG Antibody 65.7 IU/mL 06/20/18 RPR NONREACTIVE (NONREACTIVE) 06/20/18 Hep Bs Antigen Negative (Negative) 06/20/18 Chlam trachomat DNA PCR Negative (Negative) 05/24/18 N.gonorrhoeae DNA (PCR) Negative (Negative) 05/24/18 Miscellaneous Test 07/19/18 Details: HIV: Urine Culture: Sequential Screen: NIPT Screen: Results [id number] Office Urine Glucose Negative Last Edit by Sindy Morrison on 10/22/18 09:21 Office Urine Protein Negative Last Edit by Sindy Morrison on 10/22/18 09:21 Assessment AND Plan Problems 1. complicated by tobacco use in third trimester O99.333 quit! 2. Encounter for screening Z36.9 Negative QUAD marker screen - patient missed ech appt, nl anatomy scan 3. ASCUS favor benign 4. Family history of Beverly-Sachs disease Z82.0 FOB is carrier- screen negative for patient 5. Encounter for supervision of other normal in third trimester Z34.83 PRR PITER 12/23/18 Boy. Chay Matthews Ethan boyfriend Vic (4 kids) Plan movement and labor precautions reviewed. ACOG trimester education reviewed and updated. see problem list details for updated plan management information and see below for orders placed at this visit. GA appropriate handout given. Orders Orders: Coding Level of Care Code OB Routine Diagnoses complicated by tobacco use in third trimester O99.333 Trimester: third trimester Encounter for screening Z36.9 ASCUS favor benign Family history of Beverly-Sachs disease Z82.0 Encounter for supervision of other normal in third trimester Z34.83 Normal : other normal Trimester: third trimester 10/22/18 0951 <Electronically signed by Mila Gr MD> Date Mila Gr MD Cosigner Signature: Date (if applicable) CC: (ROM) RUPTURE OF Collected: 09/25/2018 Status: F Source: [facility] 10:[address] [facility] REPOSITORY Order Comment: Comments: STAT Comments: STAT TYPE CODE TESTS RESULT OUT OF RANGE REFERENCE UNITS LAB L205.1310 Negative Normal ROM Negative Result Comment: Amniotic fluid not present indicates No Rupture of Membranes at time of specimen collection. Performed By: #### L205.1000 #### [facility] [address] [place], [address] AUDIT CLERK OFFICE VISIT Observed: 09/25/2018 Status: F Source: [facility] 10:03 AM [facility] [address] [place] [address] OFFICE VISIT Date of Service: 09/25/18 MR#: [id number] Acct: [id number] Name: LAKESHIA REBOLLAR Rep #: [id number] : 1990 Provider: Mila Gr MD Age/Sex: 27/F Location: [facility] Status: Signed Intake Vital Signs09/25/18 Height 5 ft 09/25/18 Weight: 151 lb 8 oz 09/25/18 Body Mass Index (BMI) 29.5 09/25/18 Blood Pressure 102/50 L Intake Visit Reasons: est ob 27w Chief Complaint: est ob Truck Despatcher Required: No Is patient in pain?: Yes Allergies amoxicillin Adverse Reaction (Severe, Uncoded 09/25/18 09:54) vomiting and swelling bactrim Adverse Reaction (Severe, Uncoded 09/25/18 09:54) vomiting and swelling ceclor Adverse Reaction (Severe, Uncoded 09/25/18 09:54) vomiting and swelling ciprofloxan Adverse Reaction (Severe, Uncoded 09/25/18 09:54) vomiting and swelling codiene Adverse Reaction (Severe, Uncoded 09/25/18 09:54) vomiting and swelling Medications vitamin,calcium,elrbgtuc-gxth-fyvkj acid tablet 1 tab PO QDAY 05/23/18 [History Confirmed 09/25/18] Last Menstral Period: 02/23/18 Zika: Zika virus screening: Negative : No PFSH PFSH Surgical History Cyst, dermoid, leg (Acute) Ear canal mass (Acute) Family History Grandmother Cancer female area. Pt. not sure of where Mother Cancer cancerous cells in uterus Social History current occupational status: unemployed Smoking Status: Light Smoker (<10/day) alcohol intake: former year quit: 2018 substance use type: does not use caffeine: Yes Type: coffee Number of servings: 1 what type of physical activity do you participate in: bicycling, weight training frequency: 3-4 times per week seatbelt use: always do you feel safe at home: Yes additional social history: Boyfriend - Vic Pregancy History 4 Elective abortions Hx Para 3 Spontaneous abortions Past Pregnancies Del. DatName GA/WeeksOutcome Route [facility] LgAnesthesDel LocaProviderFOB e ht en th ia tn Unknown Vik live birNSVD 6 lbs 02-03-07 th - ful l term HPI est ob 27w: Details: LAKESHIA REBOLLAR is a 27 year old who presents for routine OB visit. OB Visit PITER Calculator Estimated Delivery Date 12/21/18 Based on Ultrasound Date 05/02/18 Current WG 27w 4d Number 1 Expected Delivery Route/Plan Specific Issue/Plans flu vaccine: declines tdap vaccine: [] rhogam: [] LARC form signed: [] labor support person: Vic only if available pain management: natural cut cord/dad catch: yes : yes PP control planned: [] special requests: [] Initial Weight: 120 lb Date Weight BP Urine PrFHR FuHt Pres MoCTX DilationFetal StVisit NoProviderComments E ot v te GA G Effac lucose ed Visit Notes Visit Date: 09/25/18 no vb questionable lof fell onto porch. no regular ctx. Mila Gr MD on 09/25/18 Visit Date: 08/23/18 Doing well. No VB, LOF. INGRID Hugo on 08/23/18 Visit Date: 07/19/18 plan quad screen and beverly sachs screening Mila Gr MD on 07/19/18 Visit Date: 06/20/18 no vb cramping doing well Mila Gr MD on 06/24/18 Visit Date: 05/30/18 Here for recurring vaginal bleeding although none today. Refusing vaginal exam. INGRID Hugo on 05/30/18 Visit Date: 05/23/18 No visit notes to display ACOG First Trimester First Trimester: Desire for , Alcohol, Tobacco Cessation, Illicit/Recreational Drug/Substance Use, Intimate Partner Violence, Barriers to care, Unstable Housing, Communication Barriers, Environmental/Work Hazards, Anticipated Course of Care, Toxoplasmosis Precations, Use of Any medications, Sexual activity, Exercise, Dental Care, Sauna/Hot tub use, Seat Belt use, Childbirth classes/Hospital facilities, , Travel, Indications for US and Screening for Aneuploidy Diagnostics Diagnostics Labs Blood Type O POSITIVE 06/20/18 Antibody Screen NEGATIVE 06/20/18 Hct 33.3 % (37-47) L 06/20/18 Hgb 11.4 g/dl (12.0-15.0) L 06/20/18 Pap Smear Positive A 08/30/17 Obstetrics Ultrasound 05/02/18 Rubella IgG Antibody 65.7 IU/mL 06/20/18 RPR NONREACTIVE (NONREACTIVE) 06/20/18 Hep Bs Antigen Negative (Negative) 06/20/18 Chlam trachomat DNA PCR Negative (Negative) 05/24/18 N.gonorrhoeae DNA (PCR) Negative (Negative) 05/24/18 Miscellaneous Test 07/19/18 Details: HIV: Urine Culture: Sequential Screen: NIPT Screen: ROS Const Denies fever(s) GI Denies abdominal pain, Reports as per HPI Denies vaginal discharge, Denies abnormal vaginal bleeding, Reports as per HPI Exam Const General: healthy appearing, comfortable, no acute distress GI Inspection: normal to inspection Palpation: soft, nontender Assessment AND Plan Problems 1. complicated by tobacco use in second trimester O99.332 quit! 2. Encounter for screening Z36.9 Negative QUAD marker screen - echo in 2 weeks- scheduled. 3. ASCUS favor benign 4. Family history of Beverly-Sachs disease Z82.0 FOB is carrier- offered screening to patient 5. Encounter for supervision of other normal in second trimester Z34.82 PRR PITER 12/23/18 Boy. Chay Matthews Ethan boyfriend Vic (4 kids) Plan movement and labor precautions reviewed. ACOG trimester education reviewed and updated. see problem list details for updated plan management information and see below for orders placed at this visit. GA appropriate handout given. amnisure done due to questionable lof Orders Orders: Coding Level of Care Code Off vis,est,level 3 Diagnoses complicated by tobacco use in second trimester O99.332 Trimester: second trimester Encounter for screening Z36.9 ASCUS favor benign Family history of Beverly-Sachs disease Z82.0 Encounter for supervision of other normal in second trimester Z34.82 Normal : other normal Trimester: second trimester 09/25/18 1003 <Electronically signed by Mila Gr MD> Date Mila Gr MD Cosigner Signature: Date (if applicable) CC: AUDIT CLERK OFFICE VISIT Observed: 08/23/2018 Status: F Source: [facility] 10:04 AM [facility] [address] [place] [address] OFFICE VISIT Date of Service: 08/23/18 MR#: [id number] Acct: [id number] Name: LAKESHIA REBOLLAR [place] Rep #: [id number] : 1990 Provider: MALI Gamble Age/Sex: 27/F Location: [facility] Status: Signed Intake Vital Signs08/23/18 Height 5 ft 08/23/18 Weight: 145 lb 6 oz 08/23/18 Body Mass Index (BMI) 28.3 08/23/18 Blood Pressure 118/76 Intake Visit Reasons: 22 weeks Is patient in pain?: No Allergies amoxicillin Adverse Reaction (Severe, Uncoded 07/19/18 12:07) vomiting and swelling bactrim Adverse Reaction (Severe, Uncoded 07/19/18 12:07) vomiting and swelling ceclor Adverse Reaction (Severe, Uncoded 07/19/18 12:07) vomiting and swelling ciprofloxan Adverse Reaction (Severe, Uncoded 07/19/18 12:07) vomiting and swelling codiene Adverse Reaction (Severe, Uncoded 07/19/18 12:07) vomiting and swelling Medications vitamin,calcium,oaqybgrn-ihbl-uxvdh acid tablet 1 tab PO QDAY 05/23/18 [History Confirmed 08/23/18] Last Menstral Period: 02/23/18 Zika: Zika virus screening: Negative : No PFSH PFSH Surgical History Cyst, dermoid, leg (Acute) Ear canal mass (Acute) Family History Grandmother Cancer female area. Pt. not sure of where Mother Cancer cancerous cells in uterus Social History current occupational status: unemployed Smoking Status: Light Smoker (<10/day) alcohol intake: former year quit: 2017 substance use type: does not use caffeine: Yes Type: coffee Number of servings: 1 what type of physical activity do you participate in: bicycling, weight training frequency: 3-4 times per week seatbelt use: always do you feel safe at home: Yes additional social history: Boyfriend - Vic Pregancy History 4 Elective abortions Hx Para 3 Spontaneous abortions Past Pregnancies Del. DatName GA/WeeksOutcome Route [facility] LgAnesthesDel LocaProviderFOB e ht en ia tn Unknown Vik live birNSVD 6 lbs 02-03-07 - ful l term HPI 22 weeks: Details: LAKESHIA REBOLLAR is a 27 year old who presents for routine OB visit. OB Visit PITER Calculator Estimated Delivery Date 12/21/18 Based on Ultrasound Date 05/02/18 Current WG 22w 6d Number 1 Expected Delivery Route/Plan Specific Issue/Plans flu vaccine: declines tdap vaccine: [] rhogam: [] LARC form signed: [] labor support person: Vic only if available pain management: natural cut cord/dad catch: yes : yes PP control planned: [] special requests: [] Initial Weight: 120 lb Date Weight BP Urine PrFHR FuHt Pres MoCTX DilationFetal StVisit NoProviderComments E ot v te [place] G Effac lucose ed Visit Notes Visit Date: 08/23/18 Doing well. No VB, LOF. INGRID Hugo on 08/23/18 Visit Date: 07/19/18 plan quad screen and beverly sachs screening Mila Gr MD on 07/19/18 Visit Date: 06/20/18 no vb cramping doing well Mila Gr MD on 06/24/18 Visit Date: 05/30/18 Here for recurring vaginal bleeding although none today. Refusing vaginal exam. INGRID Hugo on 05/30/18 Visit Date: 05/23/18 No visit notes to display ACOG First Trimester First Trimester: Desire for , Alcohol, Tobacco Cessation, Illicit/Recreational Drug/Substance Use, Intimate Partner Violence, Barriers to care, Unstable Housing, Communication Barriers, Environmental/Work Hazards, Anticipated Course of Care, Toxoplasmosis Precations, Use of Any medications, Sexual activity, Exercise, Dental Care, Sauna/Hot tub use, Seat Belt use, Childbirth classes/Hospital facilities, , Travel, Indications for US and Screening for Aneuploidy Diagnostics Diagnostics Labs Blood Type O POSITIVE 06/20/18 Antibody Screen NEGATIVE 06/20/18 Hct 33.3 % (37-47) L 06/20/18 Hgb 11.4 g/dl (12.0-15.0) L 06/20/18 Pap Smear Positive A 08/30/17 Obstetrics Ultrasound 05/02/18 Rubella IgG Antibody 65.7 IU/mL 06/20/18 RPR NONREACTIVE (NONREACTIVE) 06/20/18 Hep Bs Antigen Negative (Negative) 06/20/18 Chlam trachomat DNA PCR Negative (Negative) 05/24/18 N.gonorrhoeae DNA (PCR) Negative (Negative) 05/24/18 Miscellaneous Test 07/19/18 Details: HIV: Urine Culture: Sequential Screen: NIPT Screen: ROS Const Reports system reviewed and no additional complaints, except as docu GI Denies nausea, Denies vomiting, Denies abdominal pain Exam Const General: cooperative Nutritional Appearance: well nourished GI Palpation: soft, nontender, other (gravid) Results [id number] Office Urine Glucose Negative Last Edit by Jody Lee on 08/23/18 09:58 Office Urine Protein Negative Last Edit by Jody Lee on 08/23/18 09:58 Assessment AND Plan Problems 1. Encounter for supervision of other normal in second trimester Z34.82 PRR PITER 12/23/18 Boy. Chay Matthews Ethan boyfriend Vic (4 kids) 2. Encounter for screening Z36.9 Negative QUAD marker screen - echo in 2 weeks- scheduled. 3. ASCUS favor benign 4. Family history of Beverly-Sachs disease Z82.0 FOB is carrier- offered screening to patient 5. complicated by tobacco use in second trimester O99.332 quit! 6. 22 weeks gestation of Z3A.22 Plan Orders placed: none Declines flu vaccine echo schedule with MFM due to FOB family history Reviewed of labor precautions, movement/kick counts ACOG trimester education reviewed and updated See problem list details for updated plan of care Gestational age appropriate handout given RTO: 4 weeks Orders Orders: Coding Level of Care Code Off vis,est,level 3 Diagnoses Encounter for supervision of other normal in second trimester Z34.82 Normal : other normal Trimester: second trimester Encounter for screening Z36.9 ASCUS favor benign Family history of Beverly-Sachs disease Z82.0 complicated by tobacco use in second trimester O99.332 Trimester: second trimester 22 weeks gestation of Z3A.22 Weeks of gestation: 22 weeks 08/23/18 1004 <Electronically signed by Marissa QUINTERO> Date Marissa ALSTONC Cosigner Signature: Date (if applicable) CC: AFP TETRA QUAD Collected: 07/19/2018 Status: F Source: [facility] 1:[address] [facility] REPOSITORY Order Comment: Is Patient ? Y Enter Completed Weeks of Gestation: 18.0 Patient's Weight (LBS.): 135 Race: / White Number of Fetuses: 1 Is Patient Insulin-Dependent Diabetic?: N Comments: PURPLE TOP, RMT TYPE CODE TESTS RESULT OUT OF REFERENCE UNITS RANGE LAB L3290.110 . 0 TEST RESULTS: Normal *Screen Negative* LAB L3290.120 . WEEKS 0 GESTATIONAL AGE Normal 16.0 LAB L3290.130 . 1 GEST AGE FROM As Normal provided LAB L3290.140 . yr 1 MATRNL AGE @PITER Normal 30.0 LAB L3290.150 . 0 RACE Normal LAB L3290.160 . lbs 0 WEIGHT Normal 135 LAB L3290.170 . 0 INS DEP DIABETE No Normal LAB L3290.180 . 0 MULT GESTATION No Normal LAB L3290.190 . ng/mL 0 AFP VALUE-EIA Normal 51.9 LAB L3290.200 . 0 AFP MOM VALUE Normal 1.13 LAB L3290.210 . mIU/mL 0 HCG VALUE Normal 79826 LAB L3290.220 . 0 HCG MOM Normal 2.13 LAB L3290.230 . ng/mL 0 UE3 VALUE Normal 1.88 LAB L3290.240 . 0 UE3 MOM Normal 1.43 LAB L3290.250 . pg/mL 0 SHARMIN VALUE-EIA Normal 196.48 LAB L3290.260 . 0 SHARMIN MOM VALUE Normal 1.09 LAB L3290.270 . 0 OSBR RISK Normal 8106 LAB L3290.280 . 0 DSR 2ND TRIMEST Normal 37204 LAB L3290.290 . 0 DSR (BY AGE) Normal 699 LAB L3290.310 . 0 T18 RISK Normal Not increased LAB L3290.320 . 0 T18 (BY AGE) Normal 1:2723 LAB L3290.330 . 0 INTERPRETATION Normal Comment Result Comment: Interpretation: Screen Negative This result is screen negative for OSB, Down Syndrome and Trisomy 18. The AFP MoM and patient specific risks calculated are based on the gestational age and the clinical information provided. This test can identify up to 80% of open neural tube defects. Closed neural tube defects and some open defects may not be detected by this test. The combination of maternal age, AFP, hCG, uE3, and SHARMIN identifies 75-80% of Down Syndrome. The combination of maternal age, AFP, hCG and uE3 identifies 60% of Trisomy 18 pregnancies. The [place] [employer] recommends amniocentesis be offered to women age 35 and older. Recalculations are not recommended when gestational dating by LMP and ultrasound are within 10 days. Performed By: #### L3290.0100 #### [facility] (refer to report for specific site) refer to report for address and phone number #### [phone] #### [facility] [address] [place], [place], [id number] MISCELLANEOUS LAB Collected: 07/19/2018 Status: F Source: [facility] 1:[address] [facility] REPOSITORY Order Comment: Comments: JASON SANTANA Comments: [facility] screening Test(s) Ordered: [id number], BEVERLY-SACHS DISEASE DNA TYPE CODE TESTS RESULT OUT OF RANGE REFERENCE UNITS LAB L801.1541 Normal [facility] LAB TEST Result Comment: TEST RESULT LIMITS Beverly-Sachs, DNA Analysis Beverly-Sachs, DNA Comment: Test: Beverly-Sachs Disease, DNA Analysis Result: NEGATIVE (No mutation identified) Interpretation: This individual is negative for the mutations analyzed. For detection rates and a revised carrier risk, see table below. Beverly-Sachs Disease (TSD, OMIM 139779) is an autosomal recessive lysosomal storage disorder that causes progressive neurological deterioration ranging in severity from forms with infantile onset to those with adult onset. The disease has an elevated prevalence among Ashkenazi Jews and Upper Sorbian Canadians, with a carrier rate of 1 in 30, although it is seen in other ethnic groups. When both parents are carriers of Beverly-Sachs Disease, there is 1 in 4 (25%) chance with each to have a child with the disease. diagnosis is available. Molecular genetic testing for TSD encompasses seven mutations in the gene encoding Beta-hexosaminidase A (HEXA, 15q.23). Testing for these mutations identifies 94% of TSD carriers in the Ashkenazi Mormon population, 80% of TSD carriers in the [place] Sor[place] population, and 25% of TSD carriers that are non-Ashkenazi Mormon . If the individual tested by DNA analysis is not of Ashkenazi Mormon descent, carrier testing by enzyme analysis is strongly recommended. A negative test result decreases the likelihood that a person is a carrier, but cannot completely eliminate the possibility. The presence of a rare mutation cannot be ruled out. DNA test results must be combined with enzyme test results and clinical information for the most accurate interpretation. This table assumes no family history of Beverly-Sachs Disease. Please call for a revised report if this individual has a family history of TSD. Ethnicity Detection Carrier risk Remaining risk rate for prior to given negative the HEXA testing test result mutations (assumes no family history) Ashkenazi 94% 12/05 Mormon Upper Sorbian 80% 12/05 1146 [place] non-Mormon, 25% 1400 Other Not known Mutations: 1278insTATC G269S Pseudodeficiency(R249W)* IVS9+1G to A 1421+1G to C Pseudodeficiency(R247W)* 7.6kb deletion *The benign pseudodeficiency mutation, R247W, accounts for 32% of enzyme-defined carriers in the non-Mormon population and 2% of enzyme-defined carriers in the Ashkenazi Mormon population, while R249W accounts for 4% of enzyme-defined carriers among non-Mormon individuals. These mutations affect the enzyme test, but do not affect in vivo function of beta-hexosaminidase A. Carriers of these mutations are not at increased risk to have children with Beverly-Sachs Disease. Methodology: DNA analysis of the Beta-hexosaminidase A (HEXA) gene (OMIM 170567) is performed on the [facility] Array Platform using primer extension chemistry. Multiplex PCR amplifies DNA fragments containing the mutations above. Primer extension then generates a biotin-labeled product that hybridizes to complementary, bead-immobilized probes to permit flow-sorted detection of both normal and mutation sequences. Molecular-based testing is highly accurate, but as in any laboratory test, rare diagnostic errors may occur. This test was developed and its performance characteristics determined by [employer]. It has not been cleared or approved by the Food and Drug Administration. The FDA has determined that such clearance or approval is not necessary. References: 1. [place] [employer]. Committee Opinion. [place], [place]: ACOG; 1994. #162. 2. Deja MARIE. Hexosaminidase A Deficiency. GeneReviews. www.genetests.org [March 24, 2006]. 3. [place] [employer]. Committee Opinion. [place], [place]: ACOG; August 2009. #442. 4. Ruben Bennett, et al. Am J Hum Fiona. 1995; 56: 870-879. 5. Akerman BR, et al. Human Mutat. 1992; 1: 303-309. 6. Haritha SJ, Mahsa BA, Yandel CARROLL. Carrier screening in individuals of Ashkenazi Mormon descent. Fiona Med 2008; 10(1):54-56. 7. Yandel CARROLL, Armin GL, Alejandrina GE, Chitra EB, et al. Technical standards and guidelines for reproductive screening in the [place] population. Fiona Med. 2008; 10(1):57-72. Results Released By: April Last, Ph.D., Dbas Released By: April Last, Ph.D., Director TESTING PERFORMED AT [facility]. ORIGINAL REPORT ON FILE IN LAB CONTAINS ADDITIONAL TEST SITE INFORMATION. Performed By: #### L3290.0100 #### [facility] (refer to report for specific site) refer to report for address and phone number #### [phone] #### [facility] [address] [place], [address] AUDIT CLERK OFFICE VISIT Observed: 07/19/2018 Status: F Source: TIARRA REPORT 12:[address] [facility] REPOSITORY [facility] [place] [address] [place] [address] OFFICE VISIT Date of Service: 07/19/18 MR#: [id number] Acct: [id number] Name: LAKESHIA REBOLLAR Rep #: [id number] : 1990 Provider: Mila Gr MD Age/Sex: 27/F Location: [facility] Status: Signed Intake Vital Signs07/19/18 Height 5 ft 07/19/18 Weight: 136 lb 07/19/18 Body Mass Index (BMI) 26.5 07/19/18 Blood Pressure 128/84 Intake Visit Reasons: est ob Truck Despatcher Required: No Accompanied by: boyfriend Is patient in pain?: No Allergies amoxicillin Adverse Reaction (Severe, Uncoded 07/19/18 12:07) vomiting and swelling bactrim Adverse Reaction (Severe, Uncoded 07/19/18 12:07) vomiting and swelling ceclor Adverse Reaction (Severe, Uncoded 07/19/18 12:07) vomiting and swelling ciprofloxan Adverse Reaction (Severe, Uncoded 07/19/18 12:07) vomiting and swelling codiene Adverse Reaction (Severe, Uncoded 07/19/18 12:07) vomiting and swelling Medications vitamin,calcium,eovpodso-bxqb-ylbfq acid tablet 1 tab PO QDAY 05/23/18 [History Confirmed 07/19/18] Last Menstral Period: 02/23/18 Zika: Zika virus screening: Negative : No PFSH PFSH Surgical History Cyst, dermoid, leg (Acute) Ear canal mass (Acute) Family History Grandmother Cancer female area. Pt. not sure of where Mother Cancer cancerous cells in uterus Social History current occupational status: unemployed Smoking Status: Light Smoker (<10/day) alcohol intake: former year quit: 2017 substance use type: does not use caffeine: Yes Type: coffee Number of servings: 1 what type of physical activity do you participate in: bicycling, weight training frequency: 3-4 times per week seatbelt use: always do you feel safe at home: Yes additional social history: Boyfriend - Vic Pregancy History 4 Elective abortions Hx Para 3 Spontaneous abortions Past Pregnancies Del. DatName GA/WeeksOutcome Route [facility] LgAnestheORel LocaProviderFOB e ht en th ia tn Unknown Vik live birNSVD 6 lbs 02-03-07 th - ful l term HPI est ob: Details: LAKESHIA REBOLLAR is a 27 year old who presents for routine OB visit. OB Visit PITER Calculator Estimated Delivery Date 12/21/18 Based on Ultrasound Date 05/02/18 Current WG 17w 6d Number 1 Expected Delivery Route/Plan Initial Weight: 120 lb Date Weight BP Urine PrFHR FuHt Pres MoCTX DilationFetal StVisit NoProviderComments E ot v te [place] G Effac lucose ed Visit Notes Visit Date: 07/19/18 plan quad screen and beverly sachs screening Mila Gr MD on 07/19/18 Visit Date: 06/20/18 no vb cramping doing well Mila Gr MD on 06/24/18 Visit Date: 05/30/18 Here for recurring vaginal bleeding although none today. Refusing vaginal exam. INGRID Hugo on 05/30/18 Visit Date: 05/23/18 No visit notes to display ACOG First Trimester First Trimester: Desire for , Alcohol, Tobacco Cessation, Illicit/Recreational Drug/Substance Use, Intimate Partner Violence, Barriers to care, Unstable Housing, Communication Barriers, Environmental/Work Hazards, Anticipated Course of Care, Toxoplasmosis Precations, Use of Any medications, Sexual activity, Exercise, Dental Care, Sauna/Hot tub use, Seat Belt use, Childbirth classes/Hospital facilities, , Travel, Indications for US and Screening for Aneuploidy Diagnostics Diagnostics Labs Blood Type O POSITIVE 06/20/18 Antibody Screen NEGATIVE 06/20/18 Hct 33.3 % (37-47) L 06/20/18 Hgb 11.4 g/dl (12.0-15.0) L 06/20/18 Pap Smear Positive A 08/30/17 Obstetrics Ultrasound 05/02/18 Rubella IgG Antibody 65.7 IU/mL 06/20/18 RPR NONREACTIVE (NONREACTIVE) 06/20/18 Hep Bs Antigen Negative (Negative) 06/20/18 Chlam trachomat DNA PCR Negative (Negative) 05/24/18 N.gonorrhoeae DNA (PCR) Negative (Negative) 05/24/18 Details: HIV: Urine Culture: Sequential Screen: NIPT Screen: Results [id number] Office Urine Glucose Negative Last Edit by Meenakshi Garcia on 07/19/18 12:17 Office Urine Protein Negative Last Edit by Meenakshi Garcia on 07/19/18 12:17 Assessment AND Plan Problems 1. complicated by tobacco use in second trimester O99.332 quit! 2. Encounter for screening Z36.9 plan for quad screen 3. ASCUS favor benign 4. Family history of Beverly-Sachs disease Z82.0 FOB is carrier- offered screening to patient 5. Encounter for supervision of other normal in second trimester Z34.82 PRR PITER 12/23/18 PC Chay Chery Ethan boyfriend Vic (4 kids) Plan ACOG trimester education reviewed and updated. see problem list details for updated plan management information and see below for orders placed at this visit. GA appropriate handout given. Orders Orders: Coding Level of Care Code Off vis,est,level 3 Diagnoses complicated by tobacco use in second trimester O99.332 Trimester: second trimester Encounter for screening Z36.9 ASCUS favor benign Family history of Beverly-Sachs disease Z82.0 Encounter for supervision of other normal in second trimester Z34.82 Normal : other normal Trimester: second trimester 07/19/18 1257 <Electronically signed by Mila Gr MD> Date Mila Gr MD Cosigner Signature: Date (if applicable) CC: AUDIT CLERK OFFICE VISIT Observed: 06/24/2018 Status: F Source: TIARRA REPORT 5:11 AM [facility] [address] [place] [address] OFFICE VISIT Date of Service: 06/20/18 MR#: [id number] Acct: [id number] Name: LAKESHIA REBOLLAR Rep #: [id number] : 1990 Provider: Mila Gr MD Age/Sex: 27/F Location: [facility] [place] Status: Signed Intake Vital Signs06/20/18 Height 5 ft 06/20/18 Weight: 129 lb 2 oz 06/20/18 Body Mass Index (BMI) 25.2 06/20/18 Blood Pressure 104/63 Intake Visit Reasons: 14 weeks Chief Complaint: est ob Truck Despatcher Required: No Is patient in pain?: No Allergies amoxicillin Adverse Reaction (Severe, Uncoded 06/20/18 11:26) vomiting and swelling bactrim Adverse Reaction (Severe, Uncoded 06/20/18 11:26) vomiting and swelling ceclor Adverse Reaction (Severe, Uncoded 06/20/18 11:26) vomiting and swelling ciprofloxan Adverse Reaction (Severe, Uncoded 06/20/18 11:26) vomiting and swelling codiene Adverse Reaction (Severe, Uncoded 06/20/18 11:26) vomiting and swelling Medications vitamin,calcium,nidlzlyk-qzks-bpewk acid tablet 1 tab PO QDAY 05/23/18 [History Confirmed 06/20/18] Last Menstral Period: 02/23/18 Zika: Zika virus screening: Negative : No PFSH PFSH Surgical History Cyst, dermoid, leg (Acute) Ear canal mass (Acute) Family History Grandmother Cancer female area. Pt. not sure of where Mother Cancer cancerous cells in uterus Social History current occupational status: unemployed Smoking Status: Light Smoker (<10/day) alcohol intake: former year quit: 2017 substance use type: does not use caffeine: Yes Type: coffee Number of servings: 1 what type of physical activity do you participate in: bicycling, weight training frequency: 3-4 times per week seatbelt use: always do you feel safe at home: Yes additional social history: Boyfriend - Vic Pregancy History 4 Elective abortions Hx Para 3 Spontaneous abortions Past Pregnancies Del. DatName GA/WeeksOutcome Route [facility] LocaProviderFOB e ht en ia tn Unknown Vik live birNSVD 6 lbs 02-03-07 th - ful l term HPI 14 weeks: Details: LAKESHIA REBOLLAR is a 27 year old who presents for routine OB visit. patient is unable to give urine specimen OB Visit PITER Calculator Estimated Delivery Date 12/21/18 Based on Ultrasound Date 05/02/18 Current WG 14w 2d Number 1 Expected Delivery Route/Plan Initial Weight: Not Recorded Date Weight BP Urine PrFHR FuHt Pres MoCTX DilationFetal StVisit NoProviderComments E ot v te [place] G Effac lucose ed Visit Notes Visit Date: 06/20/18 no vb cramping doing well Mila Gr MD on 06/24/18 Visit Date: 05/30/18 Here for recurring vaginal bleeding although none today. Refusing vaginal exam. INGRID Hugo on 05/30/18 Visit Date: 05/23/18 No visit notes to display ACOG First Trimester First Trimester: Desire for , Alcohol, Tobacco Cessation, Illicit/Recreational Drug/Substance Use, Intimate Partner Violence, Barriers to care, Unstable Housing, Communication Barriers, Environmental/Work Hazards, Anticipated Course of Care, Toxoplasmosis Precations, Use of Any medications, Sexual activity, Exercise, Dental Care, Sauna/Hot tub use, Seat Belt use, Childbirth classes/Hospital facilities, , Travel, Indications for US and Screening for Aneuploidy Diagnostics Diagnostics Labs Blood Type O POSITIVE 06/20/18 Antibody Screen NEGATIVE 06/20/18 Hct 33.3 % (37-47) L 06/20/18 Hgb 11.4 g/dl (12.0-15.0) L 06/20/18 Pap Smear Positive A 08/30/17 Obstetrics Ultrasound 05/02/18 Rubella IgG Antibody 65.7 IU/mL 06/20/18 RPR NONREACTIVE (NONREACTIVE) 06/20/18 Hep Bs Antigen Negative (Negative) 06/20/18 Chlam trachomat DNA PCR Negative (Negative) 05/24/18 N.gonorrhoeae DNA (PCR) Negative (Negative) 05/24/18 Details: HIV: Urine Culture: Sequential Screen: NIPT Screen: ROS Const Denies fever(s) GI Denies abdominal pain, Reports as per HPI Denies vaginal discharge, Denies abnormal vaginal bleeding, Reports as per HPI Exam Const General: healthy appearing, comfortable, no acute distress GI Inspection: normal to inspection Palpation: soft, nontender Assessment AND Plan Problems 1. Encounter for supervision of other normal in second trimester Z34.82 PRR PITER 12/23/18 PC Chay Chery Ethan boyfriend Vic (4 kids) 2. complicated by tobacco use in second trimester O99.332 3. Family history of Beverly-Sachs disease Z82.0 FOB is carrier- offered screening to patient 4. ASCUS favor benign 5. Encounter for screening Z36.9 plan for quad screen Plan ACOG trimester education reviewed and updated. see problem list details for updated plan management information and see below for orders placed at this visit. [place] appropriate handout given. Coding Level of Care Code Off vis,est,level 3 Diagnoses Encounter for supervision of other normal in second trimester Z34.82 Normal : other normal Trimester: second trimester complicated by tobacco use in second trimester O99.332 Trimester: second trimester Family history of Beverly-Sachs disease Z82.0 ASCUS favor benign Encounter for screening Z36.9 06/24/18 0511 <Electronically signed by Mila Gr MD> Date Mila Gr MD Cosigner Signature: Date (if applicable) CC: CBC W/DIFF, AUTOMATED Collected: 06/20/2018 Status: F Source: TIARRA 11:[address] [facility] REPOSITORY TYPE CODE TESTS RESULT OUT OF RANGE REFERENCE UNITS LAB L100.1000 4.4-11.0 K/mm3 Normal WBC 8.9 LAB L100.1200 4.2-5.4 M/mm3 Low RBC 3.62 LAB L100.1300 12.0-15.0 g/dl Low HGB 11.4 LAB L100.1400 37-47 % Low HCT 33.3 LAB L100.1500 81-99 fL Normal MCV 92.0 LAB L100.1600 27.0-32.0 pg Normal MCH 31.5 LAB L100.1700 32-36 g/gl Normal MCHC 34.2 LAB L100.1810 11.6-14.6 % Normal RDW CV 12.6 LAB L100.1820 35.1-43.9 fl Normal RDW SD 40.9 LAB L100.1900 150-450 K/mm3 Normal PLT 218 LAB L100.2000 6.2-12.0 fl Normal MPV 9.5 LAB L100.2100 47-70 % High NEUT% 73.3 LAB L100.2200 19-41 % Normal LY% 21.2 LAB L100.2300 0-10 % Normal MONO% 4.8 LAB L100.2400 0-5 % Normal EO% 0.3 LAB L100.2500 0-1 % Normal BASO% 0.1 LAB L100.2550 0.0-0.9 % Normal IM GRAN % 0.300 Result Comment: IG% - Immature Granulocytes (promyelocytes, myelocytes and metamyelocytes) > 1% indicates that a LEFT SHIFT is Present. LAB L100.2620 2.0-7.7 X10 3/uL Normal Absolute Neut 6.5 LAB L100.2720 0.83-4.51 X10 3/ul Normal Absolute Lymph 1.89 Performed By: #### L100.0100, B101.7450 #### [facility] [address] [place], [place], [id number] TYPE AND SCREEN Collected: 06/20/2018 Status: F Source: LARAMIE 11:32 [facility] REPOSITORY Order Comment: Reason for Type AND Screen/Red Cells: TYPE CODE TESTS RESULT OUT OF RANGE REFERENCE UNITS LAB B10.0800 O Normal BLOOD TYPE GEL POSITIVE LAB B100.4000 Normal Antibody NEGATIVE Screen Performed By: #### L100.0100, B101.7450 #### [facility] [address] [place], [place], [id number] RUBELLA IGG Collected: 06/20/2018 Status: F Source: LARAMIE 11:32 [facility] REPOSITORY TYPE CODE TESTS RESULT OUT OF RANGE REFERENCE UNITS LAB L509.4000 IU/mL Normal Rubella IgG 65.7 Result Comment: Antibody results Interpretation of Immune Status < 5 IU/ml Presumed Non-immune 5 - < 10 IU/ml Equivocal > or = 10 IU/ml Presumed Immune Performed By: #### L509.4000, L3890.6005 #### [facility] [address] [place], [place], [address] #### L3100.0390 #### [facility] (refer to report for specific site) refer to report for address and phone number HIV - [facility] Collected: 06/20/2018 Status: F Source: LARAMIE 11:[address] [facility] REPOSITORY TYPE CODE TESTS RESULT OUT OF RANGE REFERENCE UNITS LAB L3890.6005 Nonreactive Normal HIV - [facility] Non-Reactive Performed By: #### L509.4000, L3890.6005 #### [facility] [address] [place], [place], [address] #### L3100.0390 #### [facility] (refer to report for specific site) refer to report for address and phone number HEPATITIS B SURFACE Collected: 06/20/2018 Status: F Source: TIARRA AG 11:[address] [facility] REPOSITORY TYPE CODE TESTS RESULT OUT OF RANGE REFERENCE UNITS LAB L3100.0400 Negative Normal HB Negative SURF AG Result Comment: Performed at: [facility] Lab[address] [id number] Can Filling And Closing Machine Tender: Shravan De Anda PhD, Phone: [phone] Performed By: #### L509.4000, L3890.6005 #### [facility] [address] [place] [address]. [place], [place], [address] #### L3100.0390 #### [facility] (refer to report for specific site) refer to report for address and phone number RAPID PLASMIN REAGIN Collected: 06/20/2018 Status: F Source: TIARRA (RPR) 11:[address] [facility] REPOSITORY TYPE CODE TESTS RESULT OUT OF REFERENCE UNITS RANGE LAB L700.5000 NONREACTIVE NONREACTIVE Normal RPR Performed By: #### L700.5000 #### [facility] [address] [place] [address]. [place], [place], [address] AUDIT CLERK OFFICE VISIT Observed: 05/30/2018 Status: F Source: TIARRA REPORT 3:[address] [facility] REPOSITORY [facility] [address] [place] [address] OFFICE VISIT Date of Service: 05/30/18 MR#: [id number] Acct: [id number] Name: LAKESHIA REBOLLAR Rep #: [id number] : 1990 Provider: MALI Gamble Age/Sex: 27/F Location: [facility] Status: Signed Intake Vital Signs05/30/18 Height 5 ft 05/30/18 Weight: 123 lb 2 oz 05/30/18 Body Mass Index (BMI) 24.0 07/25/18 Blood Pressure 96/58 Intake Visit Reasons: Bleeding last week Chief Complaint: est ob, brown discharge Truck Despatcher Required: No Is patient in pain?: No Allergies amoxicillin Adverse Reaction (Severe, Uncoded 05/30/18 14:33) vomiting and swelling bactrim Adverse Reaction (Severe, Uncoded 05/30/18 14:33) vomiting and swelling ceclor Adverse Reaction (Severe, Uncoded 05/30/18 14:33) vomiting and swelling ciprofloxan Adverse Reaction (Severe, Uncoded 05/30/18 14:33) vomiting and swelling codiene Adverse Reaction (Severe, Uncoded 05/30/18 14:33) vomiting and swelling Medications vitamin,calcium,dpgbktjw-chqe-vahqw acid tablet 1 tab PO QDAY 05/23/18 [History Confirmed 05/23/18] Last Menstral Period: 02/23/18 Zika: Zika virus screening: Negative : No PFSH PFSH Surgical History Cyst, dermoid, leg (Acute) Ear canal mass (Acute) Family History Grandmother Cancer female area. Pt. not sure of where Mother Cancer cancerous cells in uterus Social History current occupational status: unemployed Smoking Status: Light Smoker (<10/day) alcohol intake: former year quit: 2018 substance use type: does not use caffeine: Yes Type: coffee Number of servings: 1 what type of physical activity do you participate in: bicycling, weight training frequency: 3-4 times per week seatbelt use: always do you feel safe at home: Yes additional social history: Boyfriend - Vic Pregancy History 4 Elective abortions Hx Para 3 Spontaneous abortions Past Pregnancies Del. DatName [place]/WeeksOutcome [facility] LgAn[facility]hesDel LocaProviderFOB e ht en th ia tn Unknown Vik live birNSVD 6 lbs 02-03-07 - ful l term HPI Bleeding last week : Details: LAKESHIA REBOLLAR is a 27 year old who presents for routine OB visit. OB Visit PITER Calculator Estimated Delivery Date 12/21/18 Based on Ultrasound Date 05/02/18 Current WG 10w 5d Number 1 Expected Delivery Route/Plan Initial Weight: Not Recorded Date Weight BP Urine PFHR FuHt Pres MCTX DilatioFetal SVisit NProvideComment rot ov n t ote r s EGA Ef Gluco faced se 05/23/1120 lb 111/53 8 4 oz 9w 5d Visit Notes Visit Date: 05/30/18 Here for recurring vaginal bleeding although none today. Refusing vaginal exam. INGRID Hugo on 05/30/18 Visit Date: 05/23/18 No visit notes to display ACOG First Trimester First Trimester: Desire for , Alcohol, Tobacco Cessation, Illicit/Recreational Drug/Substance Use, Intimate Partner Violence, Barriers to care, Unstable Housing, Communication Barriers, Environmental/Work Hazards, Anticipated Course of Care, Toxoplasmosis Precations, Use of Any medications, Sexual activity, Exercise, Dental Care, Sauna/Hot tub use, Seat Belt use, Childbirth classes/Hospital facilities, , Travel, Indications for US and Screening for Aneuploidy Diagnostics Diagnostics Labs Pap Smear Positive A 08/30/17 Obstetrics Ultrasound 05/02/18 Chlam trachomat DNA PCR Negative (Negative) 05/24/18 N.gonorrhoeae DNA (PCR) Negative (Negative) 05/24/18 Details: HIV: Urine Culture: Sequential Screen: NIPT Screen: ROS Const Reports system reviewed and no additional complaints, except as docu GI Denies nausea, Denies vomiting, Denies abdominal pain Exam Const General: cooperative Nutritional Appearance: well nourished GI Palpation: soft, nontender, other (gravid) Assessment AND Plan Problems 1. Bleeding in early O20.9 2. Encounter for supervision of other normal in first trimester Z34.81 PITER 12/23/18 Chay Matthews Ethan boyfriend Vic (4 kids) 3. complicated by tobacco use in first trimester O99.331 Plan Abdominal US per SIERRA confirms IUP with FHT. Posterior subchorionic hemorrhage [id number] stable from previous exam Pelvic rest She has stopped smoking RTO routine OB, prn with problems. Coding Level of Care Code Off vis,est,level 3 Diagnoses Bleeding in early O20.9 Encounter for supervision of other normal in first trimester Z34.81 Normal : other normal Trimester: first trimester complicated by tobacco use in first trimester O99.331 Trimester: first trimester 07/25/18 1535 <Electronically signed by Marissa QUINTERO> Date Marissa Gamble BAG LOADER MACHINE OPERATOR-C Cosigner Signature: Date (if applicable) CC: CT/NG [facility] BY PCR Collected: 05/24/2018 Status: F Source: TIARRA 11:[address] [facility] REPOSITORY TYPE CODE TESTS RESULT OUT OF RANGE REFERENCE UNITS LAB L8200.2100 Negative Normal Chlam Negative Trac PCR LAB L8200.2200 Negative Normal NG by Negative PCR Performed By: #### L8200.2000 #### [facility] [address] [place], [address] AUDIT CLERK OFFICE VISIT Observed: 05/23/2018 Status: F Source: TIARRA REPORT 11:[address] [facility] REPOSITORY [facility] [address] [place] [address] OFFICE VISIT Date of Service: 05/23/18 MR#: [id number] Acct: [id number] Name: LAKESHIA REBOLLAR Rep #: [id number] : 1990 Provider: Mila Gr MD Age/Sex: 27/F Location: [facility] Status: Signed Intake Vital Signs05/23/18 Height 4 ft 11 in 05/23/18 Weight: 120 lb 4 oz 05/23/18 Body Mass Index (BMI) 24.3 05/23/18 Blood Pressure 111/53 Intake Visit Reasons: NOB Truck Despatcher Required: No Accompanied by: Significant Other Is patient in pain?: No Allergies amoxicillin Adverse Reaction (Severe, Uncoded 05/23/18 12:40) vomiting and swelling bactrim Adverse Reaction (Severe, Uncoded 05/23/18 12:41) vomiting and swelling ceclor Adverse Reaction (Severe, Uncoded 05/23/18 12:39) vomiting and swelling ciprofloxan Adverse Reaction (Severe, Uncoded 05/23/18 12:42) vomiting and swelling codiene Adverse Reaction (Severe, Uncoded 05/23/18 12:40) vomiting and swelling Medications vitamin,calcium,kqkndyvt-mfzh-jslzx acid tablet 1 tab PO QDAY 05/23/18 [History Confirmed 05/23/18] Last Menstral Period: 02/21/18 Zika: Zika virus screening: Negative PFSH PFSH Surgical History Cyst, dermoid, leg (Acute) Ear canal mass (Acute) Family History Grandmother Cancer female area. Pt. not sure of where Mother Cancer cancerous cells in uterus Social History current occupational status: unemployed Smoking Status: Light Smoker (<10/day) alcohol intake: former year quit: 2017 substance use type: does not use caffeine: Yes Type: coffee Number of servings: 1 what type of physical activity do you participate in: bicycling, weight training frequency: 3-4 times per week seatbelt use: always do you feel safe at home: Yes additional social history: Boyfriend - Vic Pregancy History 4 Elective abortions Hx Para 3 Spontaneous abortions Past Pregnancies Del. DatName GA/WeeksOutcome Route [facility] LgAnesthesDel LocaProviderFOB e ht en ia tn Unknown Vik live birNSVD 6 lbs 02-03-07 th - ful l term HPI NOB : Details: LAKESHIA REBOLLAR is a 27 year old who presents for New OB visit. OB Visit PITER Calculator Estimated Delivery Date 12/21/18 Based on Ultrasound Date 05/02/18 Current WG 9w 5d Number 1 Comments: IUP seen small resolving subchorionic hemorrhage fht 170 Expected Delivery Route/Plan Initial Weight: Not Recorded Date Weight BP Urine PrFHR FuHt Pres MoCTX DilationFetal StVisit NoProviderComments E ot v te [place] G Effac lucose ed Menstrual History Last Menstral Period: 02/21/18 Reported LMP: definite Normal amount/duration: Yes On hormonal BC at conception: No Antepartum Record Genetic Screening: Congenital Heart Defect: Other, Neural Tube Defect: Other, Hemoglobinopathy Or Carrier: Other, Cystic Fibrosis: Other, Chromosome Abnormality: Other, Beverly-Sachs: Partner (partner is a carrier, offered screening for patient to be screened, she is to decide), Hemophilia: Other, Intellectual Disability/Autism: Other, Recurrent Loss/Stillbirth: Other, Other Structural Defect: Other, Other Genetic Disease: Other, Maternal Metabolic Disorder: Other Infection History: Live with someone with TB or Exposed to TB: No, Patient or Partner has history of Genital Herpes: No, Rash or Viral illness since last mentrual period: No, Prior GBS-Infected child: No, History of STD: No, HIV Infection: No, History of Hepatitis: No, Recent travel outside of [place]: No, Concern for Hep exposure: No, Varicella immune: Yes Medical History Medical History: Positive: History of abnormal pap, Negative: Diabetes, Hypertension, Heart disease, Auto-immune disorder, Kidney disease/UTI, Neurologic/epilepsy, Psychiatric, Depression/ depression, Hepatitis/liver disease, Varicosities/phlebitis, Thyroid dysfunction, Trauma/domestic violence, History of blood transfusions, D (Rh) Sensitized, Pulmonary (e.g.,TB,Asthma), Seasonal allergies, Drug/latex allergies/reactions, Breast, Pony Roll Finisher surgery, Operations/hospitalizations, Anesthetic complications, Uterine anomaly/brian, Infertility, Anti-retroviral treatment, Relevant family history, Other ACOG First Trimester First Trimester: Desire for , Alcohol, Tobacco Cessation, Illicit/Recreational Drug/Substance Use, Intimate Partner Violence, Barriers to care, Unstable Housing, Communication Barriers, Environmental/Work Hazards, Anticipated Course of Care, Nurtrition and weight gain, Toxoplasmosis Precations, Use of Any medications, Sexual activity, Exercise, Dental Care, Sauna/Hot tub use, Seat Belt use, Childbirth classes/Hospital facilities, , Travel, Indications for US and Screening for Aneuploidy ROS Const Denies fever(s), Reports system reviewed and no additional complaints, except as docu, Reports fatigue Eyes Reports system reviewed and no additional complaints, except as docu ENT Reports system reviewed and no additional complaints, except as docu Card Denies chest pain, Denies shortness of breath Resp Reports system reviewed and no additional complaints, except as docu, Denies shortness of breath, Denies cough GI Reports nausea, Denies abdominal pain Reports system reviewed and no additional complaints, except as docu Musc Reports system reviewed and no additional complaints, except as docu Skin/Breast Reports system reviewed and no additional complaints, except as docu Neuro Yes system reviewed and no additional complaints, except as docu Psych Reports system reviewed and no additional complaints, except as docu Endo Reports fatigue, Reports system reviewed and no additional complaints, except as docu Exam Const General: healthy appearing, comfortable, no acute distress Orientation: alert [facility] Head: normal to inspection, atraumatic, normocephalic Ears: external ears normal, hearing grossly normal bilaterally Nose: nares normal, external nose normal Mouth: oral mucosae normal Teeth and gingiva: dentition normal Eyes General: appearance normal, both eyes and all related structures Neck Neck: no lymphadenopathy, supple, normal visual inspection Thyroid: thyroid normal Chest Chest palpation AND inspection: normal inspection of the chest Breast inspection: normal inspection of the breasts, normal inspection of the axillae Breast palpation: normal palpation of the breasts, normal palpation of the axillae Resp Effort AND Inspection: normal respiratory effort GI Inspection: normal to inspection Palpation: soft, no hepatosplenomegaly General: bladder normal to palpation External Female Exam: normal external appearance, normal appearance of the urethra Urethra: normal appearance of the urethra Speculum Exam - Vagina: normal appearance of the vagina, normal vaginal discharge Speculum Exam - Cervix: normal appearance of the cervix Bimanual Exam- Vagina AND Uterus: bladder normal to palpation, normal bimanual exam, uterus non-tender, other Bimanual Exam- Adnexa, other: adnexae non-tender Skin General: no rashes or lesions noted Neuro Motor: muscle tone normal throughout, no movement abnormalities noted Extrem General: normal to inspection, full ROM Assessment AND Plan Problems 1. Encounter for supervision of other normal in first trimester Z34.81 PITER 12/23/18 Chay Matthews Ethan boyfriend Vic (4 kids) 2. Family history of Beverly-Sachs disease Z82.0 FOB is carrier- offered screening to patient 3. complicated by tobacco use in first trimester O99.331 Plan Patient oriented to practice and discussed care expectations and screenings. ACOG book offered to patient. labs and 19-20 week anatomy ultrasound ordered. see problem list details for plan information. Genetic screening offered to patient and patient chose: discussed and offered Orders Orders: Supplemental Info ACOG book given and patient encouraged to read about nutrition, exercise, weight gain, and food avoidance in . Coding Level of Care Code Off vis,new,level 4 Diagnoses Encounter for supervision of other normal in first trimester Z34.81 Normal : other normal Trimester: first trimester Family history of Beverly-Sachs disease Z82.0 complicated by tobacco use in first trimester O99.331 Trimester: first trimester 05/23/18 2319 <Electronically signed by Mila Gr MD> Date Mila Gr MD Cosigner Signature: Date (if applicable) CC: Observed: 05/23/2018 Status: F Source: [place] CULTURE, URINE 6:[address] [facility] REPOSITORY NO COLLECTION INFO GIVEN Urine Culture Culture exhibits no growth. Performed By: #### M100.0650 #### [facility] [address] [place], [address] UA COMPLETE Collected: 05/20/2018 Status: F Source: [facility] 11:08 PM [facility] REPOSITORY TYPE CODE TESTS RESULT OUT OF RANGE REFERENCE UNITS LAB 72187069( Yellow LOINC) Normal UA Color Straw LAB 88677395( Clear LOINC) Normal UA Clarity Clear LAB 24094343( Negative LOINC) Normal UA Glucose Negative LAB 82568550( Negative LOINC) Normal UA Bili Negative LAB 07726747( Negative LOINC) Normal UA Ketones Negative LAB 42671490( 1.003-1.030 LOINC) Normal UA Spec Grav 1.006 LAB 80162563( 4.6-8.0 LOINC) Normal UA pH 6.0 LAB 02097781( Negative LOINC) Normal UA Protein Negative LAB 26828838( mg/dL LOINC) Normal UA Urobilinogen Negative LAB 50976232( Negative LOINC) Normal UA Nitrite Negative LAB 20407245( Negative LOINC) UA Blood Abnormal 2+ LAB 67847229( Negative LOINC) Normal UA Leuk Est Negative LAB 35027871( 0-3 /HPF LOINC) Normal UA RBC 0-3 LAB 86290844( 0-5 /HPF LOINC) Normal UA WBC 0-5 LAB 19032115( 0-5 /HPF LOINC) Normal UA Squam Epithelial 0-5 Performed By: #### [id number] #### BENJA Urinalysis Automated Subsection [facility] [place] [address] TRANSVAGINAL W/PREG US Observed: 05/02/2018 Status: F Source: [place]IE 9:[address] [facility] REPOSITORY [facility] Imaging Services [address] [place] [address] Transvaginal w/Preg US MR#: [id number] Acct: [id number] Name: LAKESHIA REBOLLAR Rep #: [id number] : 1990 F 27 From: Мария Dodd MD PCP: Care Physician, No Primary Status: REG CLI Study: Transvaginal w/Preg US Date of Exam: 05/02/18 Exam# [id number] Ordering Dr: Marissa Gamble STUDY: FIRST TRIMESTER OBSTETRICAL ULTRASOUND REASON FOR EXAM: Female, 27 years old. Pelvic pain and spotting with intercourse. LMP: 02/23/2018 TECHNIQUE: Transabdominal and transvaginal real-time examination with grayscale image documentation and Doppler color flow. PRIOR ULTRASOUND: None. FINDINGS: There is visualization of a single gestational sac in a normal intrauterine position. The mean sac diameter (MSD) measures 2.0, indicating an estimated gestational age (EGA) of 7 weeks, 0 days. The gestational sac is somewhat irregular in configuration. In addition to the yolk sac and pole that are identified there is an additional structure within the sac that extends from the wall measuring 0.9 x 1.5 cm this has an outer border similar to chorion and a hypoechoic nonvascular center. There is an additional hypoechoic area adjacent to the gestational sac measuring 2.2 x 0.9 x 0.6 cm consistent with a more typical of a subchorionic hemorrhage. There is a visualized yolk sac. The yolk sac measures 5.5 mm. There is visualization of the placenta. There is visualization of a live embryo. The crown-rump length (CRL) measures 0.61 cm, indicating an estimated gestational age (EGA) of 6 weeks, 3 days. There is demonstrated cardiac activity with a heart rate of 128 bpm. The estimated gestation age (EGA) by LMP is 9 weeks, 5 days. The estimated date of delivery (PITER) by LMP is 11/30/2018. The estimated gestation age (EGA) by US is 6 weeks, 5 days. The estimated date of delivery (PITER) by US is 12/21/2018. The uterus measures 10.6 x 7.8 x 6.7 cm. There is no demonstrated uterine fibroid. The cervix is closed. The right ovary measures 4.6 x 3.3 x 3.2 cm. There is a 3.1 x 2.6 x 1.4 cm complex cyst. There is no visualized right adnexal mass or complex lesion. The left ovary measures 2.8 x 2.1 x 1.4 cm. There is no left ovarian cyst. There is no visualized left adnexal mass or complex lesion. There is no fluid in the cul de sac. US/Transvaginal w/Preg US IMPRESSION: Single living intrauterine fetus of 6 weeks and 5 days by crown-rump length and gestational sac diameter with an PITER of 12/21/2018. heart rate 128 bpm. In addition to the visualized pole and yolk sac there is an additional that protrudes into the gestational sac measuring 0.9 x 1.5 cm, possibly a subchorionic hemorrhage. There is an additional hypoechoic area measuring 2.2 x 0.9 x 0.6 cm consistent with a more typical subchorionic hemorrhage. There is a 3.1 x 2.6 x 1.4 cm complex cyst of the right ovary. Normal left ovary. Minimal free fluid. No additional adnexal masses. Electronically Signed: Мария Dodd MD at 17:28 EDT , Service support , CC: MALI Gamble; No Primary Care Physician Business Information Manager: Signed DOWNTIME REPORT Observed: 04/26/2018 Status: F Source: [place]AR[place] 1:[address] [facility] REPOSITORY [facility] Medical Records Department [address] [place] [address] Downtime Report MR#: [id number] Acct: [id number] Name: LAKESHIA REBOLLAR Rep #: [id number] : 1990 27 From: Stephen Catalan PCP: Status: REG CLI This patient was seen during an EMR downtime April 09, 2018 - April 16, 2018. This patient may have a combination of paper and electronic documentation or all paper documentation. All documentation is viewable within the e-chart portion of [employer] for each patient visit. PAP I-G W/RFX Collected: 04/09/2018 Status: F Source: [place] HRHPV-APTIMA 9:[address] [facility] REPOSITORY Order Comment: CYTOLOGY INFORMATION: - CLINICAL INFORMATION: - DATE LMP/MENOPAUSE: UNKNOWN - COLLECTION VIAL: Thin Prep Vial - HYGIENE TEACHER SOURCE: CERVICAL - COLLECTION TECHNIQUE: BRUSH/SPATULA Specimen Comment: Source.............Cervix Specimen Comment: No. of containers..01 ThinPrep Vial Specimen Comment: A duplicate report has been generated due to demographic Specimen Comment: updates. TYPE CODE TESTS RESULT OUT OF RANGE REFERENCE UNITS LAB L7400.0800 . Normal DIAGN Comment Result Comment: NEGATIVE FOR INTRAEPITHELIAL LESION AND MALIGNANCY. CELLULAR CHANGES ASSOCIATED WITH INFLAMMATION ARE PRESENT. LAB L7400.0900 . Normal ADEQ Comment Result Comment: Satisfactory for evaluation. Endocervical and/or squamous metaplastic cells (endocervical component) are present. LAB L7400.1400 . Normal PERFORM Comment Result Comment: Ita Santiago, It Communications Specialist (ASCP) LAB L7400.2575 . Normal TEST METHOD Comment Result Comment: This liquid based ThinPrep(R) pap test was screened with the use of an image guided system. LAB L7400.2600 . Normal . COMM LAB L7400.2700 . Normal PAPSMR Comment Result Comment: The Pap smear is a screening test designed to aid in the detection of premalignant and malignant conditions of the uterine cervix. It is not a diagnostic procedure and should not be used as the sole means of detecting cervical cancer. Both false-positive and false-negative reports do occur. LAB L7400.2800 . Normal HPV RFLX Comment Result Comment: The HPV DNA reflex criteria were not met with this specimen result therefore, no HPV testing was performed. Performed at: - [facility] Nael Lamb W [id number] [employer] Machine Tender: Martha Saez MD, Phone: [phone] Performed By: #### L7400.0353 #### [facility] (refer to report for specific site) refer to report for address and phone number UA COMPLETE Collected: 03/27/2018 Status: F Source: [facility] 9:12 AM [facility] REPOSITORY TYPE CODE TESTS RESULT OUT OF REFERENCE UNITS RANGE LAB 91421024( Yellow LOINC) UA Color Normal Colorless LAB 39632998( Clear LOINC) UA Clarity Normal Clear LAB 75186516( Negative LOINC) UA Glucose Normal Negative LAB 15848949( Negative LOINC) UA Bili Normal Negative LAB 19618103( Negative LOINC) UA Ketones Normal Negative LAB 72593102( 1.003-1.030 LOINC) Low UA Spec Grav 1.002 LAB 07766406( 4.6-8.0 LOINC) UA pH Normal 6.0 LAB 17331010( Negative LOINC) UA Protein Normal Negative LAB 28791337( mg/dL LOINC) UA Normal Urobilinogen Negative LAB 42349878( Negative LOINC) UA Nitrite Normal Negative LAB 71696428( Negative LOINC) UA Blood Normal Negative LAB 42499886( Negative LOINC) UA Leuk Est Normal Trace LAB 70275304( 0-3 /HPF LOINC) UA RBC Normal 0-3 LAB 44570745( 0-5 /HPF LOINC) UA WBC Normal 0-5 LAB 52449133( 0-5 /HPF LOINC) UA Squam Normal Epithelial 0-5 Performed By: #### [id number] #### BENJA Urinalysis Automated [address] [address] U BHCG QLT Collected: 03/27/2018 Status: F Source: [facility] 9:12 AM [facility] REPOSITORY TYPE CODE TESTS RESULT OUT OF RANGE REFERENCE UNITS LAB 7523969(POLO Neg NC) Normal U beta Neg hCG Ql Performed By: #### [id number] #### BENJA Urinalysis Manual Subsection [address] [place], [place] [address] ALLERGIES ALLERGIES DATE TYPE / CODE NAME / CODE REACTION SEVERITY SOURCE Miscellaneous amoxicillin Anaphylaxis SV [place] 9 Allergy/788101593( [facility] SNOMED CT) Hospital Repository Miscellaneous bactrim Anaphylaxis SV [place] 9 Allergy/427569404( [facility] SNOMED CT) Hospital Repository Miscellaneous ceclor Anaphylaxis SV [place] 9 Allergy/628626922( [facility] SNOMED CT) Hospital Repository Miscellaneous ciprofloxan Anaphylaxis SV [place] 9 Allergy/133236161( [facility] SNOMED CT) Hospital Repository Miscellaneous codiene Anaphylaxis SV [place] 9 Allergy/304012970( [facility] SNOMED CT) Hospital Repository Drug Penicillins/F0010 Anaphylaxis Unknown [place] 9 Allergy/011133577( 28389(RXNORM) [facility] SNOMED CT) Hospital Repository Drug/148755200(SNO ciprofloxacin increased HR [facility]) [facility] Repository Drug/721760312(SNO codeine HIVES [facility] CT) [facility] Repository Drug/080192443(SNO amoxicillin vomitting/facia [facility] CT) l swelling [facility] Repository Drug/100205412(SNO penicillins Vomiting [facility]) [facility] Repository Drug/695661672(SNO Bactrim HIVES [facility]) [facility] Repository Drug/736173619(SNO Ceclor HIVES [facility]) [facility] Repository ENCOUNTERS ENCOUNTERS ADMIT/DISCHARGE ACCOUNT NUMBER ADMITTING ENCOUNTER LOCATION SOURCE CLASS 11/28/[id number] [facility] ding:LABSPEC Repository 11/28/2018/11/28/19 [id number] Ambulatory BMSBuilding: [place] 19 BMS.[facility] Repository 11/20/2018 [id number] Ambulatory BMSBuilding: [place] BMS.CF.[facility] Repository 11/19/2018/11/20/19 [id number] Ambulatory [address] ding:WPOUTRo Repository om: WP012 11/14/2018/01/09 [id number] Ambulatory BMSBuilding: [place] 19 BMS.[facility] Repository 10/22/2018/10/22/20 [id number] Ambulatory BMSBuilding: [place] 18 BMS.[facility] Repository 09/25/[id number] [facility] ding:LABSPEC Repository 09/25/2018/09/25/20 [id number] Ambulatory BMSBuilding: [place] 18 BMS.[facility] Repository 08/23/2018/08/23/20 [id number] Ambulatory BMSBuilding: [place] 18 BMS.[facility] Repository 08/02/2018/08/02/20 [id number] Ambulatory Building:[facility] 18 [facility] Repository 07/19/[id number] [facility] ding:LAB Repository 07/19/2018/07/19/20 [id number] Ambulatory BMSBuilding: [place] 18 BMS.[facility] Repository 07/18/2018 [id number] Ambulatory BMSBuilding: [place] BMS.[facility] Repository 06/20/[id number] [facility] ding:POLAB3 Repository 06/20/2018/06/20/20 [id number] Ambulatory BMSBuilding: [place] 18 BMS.[facility] Repository 06/13/2018 [id number] Ambulatory BMSBuilding: [place] BMS.[facility] Repository 05/30/2018/05/30/20 [id number] Ambulatory BMSBuilding: [place] 18 BMS.[facility] Repository 05/23/[id number] [facility] ding:LABSPEC Repository 05/23/2018/05/23/20 [id number] Ambulatory BMSBuilding: [place] 18 BMS.[facility] Repository 05/20/2018/05/20/20 [id number] Emanuel [address] ding:[facility] EDRoom: Repository 05/20/2018 [id number] Ambulatory [address] [place] [address] Repository 05/02/2018 [id number] Ambulatory [place] [facility] ding:US Repository 04/24/2018/04/24/20 [id number] Ambulatory [address] Health System :[facility] Repository 04/09/2018 [id number] Ambulatory [place] [facility] ding:LABSPEC Repository 04/09/2018/04/09/20 [id number] Ambulatory BMSBuilding: [place] 18 BMS.[facility] Repository 03/27/2018/03/27/20 [id number] Aquiles Corley [address] ding: Health System EDRoom: Repository 02/26/2018/02/27/20 [id number] Ambulatory [address] Health System :[facility] Repository 02/03/2018/02/04/20 [id number] Jose, Ambulatory [place] [address] Pal Stock g:QCareRoom: Regional Room 3 Health System Repository PAYERS PAYERS ENCOUNTER GUARANTOR PAYER SUBSCRIBER SOURCE 11/28/2018 LAKESHIA L Primary LAKESHIA L [place] [id number] Insurance:[facility] REBOLLARB: [facility] [id number] Hospital [address]Phv: ([phone]) PLANPolicy Number: Repository [phone] () [id number] Date:0045-59-69YW [address] [place] [address] [place] [address]UU: 11/28/2018 Secondary NOT GIVENUNK [place] Insurance:SELF PAY [facility] Number: Effective Repository Date:2018-11-28 11/28/2018 LAKESHIA L Primary LAKESHIA L [place] [id number] Insurance:[facility]: [facility] [id number] Hospital [address]Iql: ([phone]) PLANPolicy Number: Repository [phone] () [id number] Date:4738-67-08UZ [address] [place] [address] [place] [address]KV: 11/28/2018 Secondary NOT GIVENUNK [place] Insurance:SELF PAY [facility] Hospital Number: Effective Repository Date:2018-11-28 11/20/2018 LAKESHIA L Primary LAKESHIA L [place] [id number] Insurance:BUCKEYE KETURAHDOB: [facility] [id number] [place] [id number]: ([phone]) PLANPolicy Number: Repository [phone] () [id number] Date:3022-50-46WC [address] [address]EL: 11/20/2018 Secondary NOT GIVENUNK [place] Insurance:SELF PAY [facility] Number: Effective Repository Date:2018-11-20 11/19/2018 LAKESHIA L Primary LAKESHIA L [place] [id number] Insurance:BUCKEYE KETURAHDOB: [facility] [id number] [place] [id number]: (567) PLANPolicy Number: Repository [phone] () [id number] Date:[id number] [address]YE: 11/19/2018 Secondary NOT GIVENUNK [place] Insurance:SELF PAY [facility] Number: Effective Repository Date:2018-11-19 11/14/2018 LAKESHIA L Primary LAKESHIA L [place] [id number] Insurance:SUSIE LYB: [facility] [id number] Hospital [address]Rgb: (567) PLANPolicy Number: Repository [phone] () [id number] Date:3013-14-26SI [address] [place] [address]GV: 11/14/2018 Secondary NOT GIVENUNK [place] Insurance:SELF PAY [facility] Hospital Number: Effective Repository Date:2018-11-14 10/22/2018 LAKESHIA L Primary LAKESHIA L [place] [id number] Insurance:THOEYE KETURAHDOB: [facility] [id number] [place] [id number]: (567) PLANPolicy Number: Repository [phone] () [id number] Date:7630-02-77LM [address] [facility] [place] [address]BN: 10/22/2018 Secondary NOT GIVENUNK [place] Insurance:SELF PAY [facility] Number: Effective Repository Date:2018-10-22 09/25/2018 LAKESHIA L Primary LAKESHIA L [place] [id number] Insurance:BUCKEYE YOUNGDOB: [facility] [id number] [place] [id number]: (567) PLANPolicy Number: Repository [phone] () [id number] Date:4849-73-25KY [address] [place] [address]NU: 09/25/2018 Secondary NOT GIVENUNK [place] Insurance:SELF PAY [facility] Number: Effective Repository Date:2018-09-25 09/25/2018 LAKESHIA L Primary LAKESHIA L [place] [id number] Insurance:BUCKEYE YOUNGDOB: [facility] [id number] Ville [id number]: (567) PLANPolicy Number: Repository [phone] () [id number] Date:6952-67-07EH [address] [address]UR: 09/25/2018 Secondary NOT GIVENUNK [place] Insurance:SELF PAY [facility] Hospital Number: Effective Repository Date:2018-09-25 08/23/2018 LAKESHIA L Primary LAKESHIA L [place] [id number] Insurance:BUCKEYE YOUNGDOB: [facility] [id number] [place] [id number]: (567) PLANPolicy Number: Repository [phone] () [id number] Date:1663-38-99BT [address] [place] [address] [place] [address]XT: 08/23/2018 Secondary NOT GIVENUNK [place] Insurance:SELF PAY [facility] Hospital Number: Effective Repository Date:2018-08-08 08/02/2018 LAKESHIA Primary LAKESHIA [facility] YOUNGDOB: Insurance:BUCKEYEPoli YOUNGDOB: [facility] E cy Number: [id number] Repository [facility] [id number] [address] [place] [place] [address]Sao: Date: [place] [address] () 07/19/2018 LAKESHIA L Primary LAKESHIA L [place] [id number] Insurance:SUSIE LYB: [facility] [id number] Hospital [address]Ano: (567) PLANPolicy Number: Repository [phone] () [id number] Date:3315-41-89CK [address] [place] [address]UJ: 07/19/2018 Secondary NOT GIVENUNK [place] Insurance:SELF PAY [facility] Number: Effective Repository Date:2018-07-19 07/19/2018 LAKESHIA L Primary LAKESHIA L [place] [id number] Insurance:SUSIE LYB: [facility] [id number] Ville [id number]: (567) PLANPolicy Number: Repository [phone] () [id number] Date:0207-62-17DO [address] [place] [address]JC: 07/19/2018 Secondary NOT GIVENUNK [place] Insurance:SELF PAY [facility] Hospital Number: Effective Repository Date:2018-07-19 07/18/2018 LAKESHIA L Primary LAKESHIA L [place] [id number] Insurance:SUSIE LYB: [facility] [id number] Hospital [address]Rjx: ([phone]) PLANPolicy Number: Repository [phone] () [id number] Date:3278-67-65EJ [address] [place] [address]KW: 07/18/2018 Secondary NOT GIVENUNK [place] Insurance:SELF PAY [facility] Hospital Number: Effective Repository Date:2018-07-11 06/20/2018 LAKESHIA L Primary LAKESHIA L [place] [id number] Insurance:THOEYSelene LYB: [facility] [id number] Hospital [address]Tjx: ([phone]) PLANPolicy Number: Repository [phone] () [id number] Date:3452-66-24GB [address]OX [facility] InstituteVenitaNEW [place] [address]FV: 06/20/2018 Secondary NOT GIVENUNK [place] Insurance:SELF PAY [facility] Number: Effective Repository Date:2018-06-20 06/20/2018 LAKESHIA L Primary LAKESHIA L [place] [id number] Insurance:SUSIE LYB: [facility] [id number] Hospital [address]Yhh: (567) PLANPolicy Number: Repository [phone] () [id number] Date:7454-95-28BM [address] [place] [address]DB: 06/20/2018 Secondary NOT GIVENUNK [place] Insurance:SELF PAY [facility] Hospital Number: Effective Repository Date:2018-06-20 06/13/2018 LAKESHIA L Primary LAKESHIA L [place] [id number] Insurance:SUSIE LYB: [facility] [id number] Hospital [address]Qoz: ([phone]) PLANPolicy Number: Repository [phone] () [id number] Date:0415-44-07LT [address] [place] [address] 86227KG: 06/13/2018 Secondary NOT GIVENUNK Tiarra Insurance:SELF PAY [facility] Number: Effective Repository Date:2018-05-30 05/30/2018 LAKESHIA L Primary LAKESHIA L [place] [id number] Insurance:SUSIE MCPHERSON: [facility] [id number] Hospital 79084Qxm: (567) PLANPolicy Number: Repository [phone] () [id number] Date:8295-06-39KK [address] [place] [address] 80272MI: 05/30/2018 Secondary NOT GIVENUNK Tiarra Insurance:SELF PAY [facility] Number: Effective Repository Date:2018-05-30 05/23/2018 LAKESHIA L Primary LAKESHIA L Tiarrajana [id number] Insurance:THOEYE KETURAHDOB: [facility] [id number] Hospital 65804Iqg: (567) PLANPolicy Number: Repository [phone] () [id number] Date:5772-56-26ES [address] [place] [address] 05473HD: 05/23/2018 Secondary NOT GIVENUNK Tiarra Insurance:SELF PAY [facility] Number: Effective Repository Date:2018-05-23 05/23/2018 LAKESHIA L Primary LAKESHIA L [place] [id number] Insurance:BUCKEYE KETURAHDOB: [facility] [id number] Hospital 43346Bfk: (567) PLANPolicy Number: Repository [phone] () [id number] Date:5703-81-56TP [address] [place] [address] 48156NT: 05/23/2018 Secondary NOT GIVENUNK Tiarra Insurance:SELF PAY [facility] Number: Effective Repository Date:2018-05-23 05/20/2018 LAKESHIA L Primary LAKESHIA L [facility] Insurance:SUSIE LYB: [facility] [id number] System [facility] Number: E MAIN Repository [place] [id number]: Effective [place] Date:2018-05-20 [id number]: () [id number] Name:[id number] ()Tel: 000) [address], 000[address] () [place] [address]LP: 05/20/2018 LAKESHIA L Primary LAKESHIA L [place] [facility] Insurance:Addison YOUNGB: [facility] [id number] Repository [facility] Number: E MAIN [place] [id number]: [id number] [place] Date:Plan [id number]: () Name:Health [address] [place] [address] () 86254DS: 05/02/2018 LAKESHIA L Primary LAKESHIA L [place] [address] Insurance:BUCKEYE KETURAHDOB: [facility] [id number] Hospital 61154Pzp: ([phone]) PLANPolicy Number: Repository 49 () [id number] Date:8294-63-97UB [address] [address]WJ: 05/02/2018 Secondary NOT GIVENUNK [place] Insurance:SELF PAY [facility] Effective Repository Date:2018-04-24 04/24/2018 LAKESHIA L Primary LAKESHIA L Sikh ALIYAHB: Insurance:1500 YOUNGDOB: [facility] E [place] [id number] System MAIN [facility] E MAIN Repository [place] [id number]: Number: Effective [place] Date:2018-03-13 [id number]: () [id number] Name:[id number] ()Tel: (000) [address] [place] [address] 000-[address] () [place] [address]GF: 04/09/2018 LAKESHIA L Primary LAKESHIA L [place] [address] Insurance:SUSIE LYB: [facility] [id number] Hospital [id number]: (567) [facility] [phone] () [id number] Date:2263-90-74PT [address] [place] [address] 30538AH: 04/09/2018 Secondary NOT GIVENUNK Tiarra Insurance:SELF PAY [facility] Number: Effective Repository Date:2018-04-09 04/09/2018 LAKESHIA L Primary LAKESHIA L [place] [id number] Insurance:BUCKEYE YOUNGDOB: [facility] [id number] Hospital [id number]: (567) PLANPolicy Number: Repository [phone] () [id number] Date:1606-31-60SM [address], [place] [address]RG: 04/09/2018 Secondary NOT GIVENUNK Tiarra Insurance:SELF PAY [facility] Number: Effective Repository Date:2018-04-18 03/27/2018 LAKESHIA L Primary LAKESHIA L Lilia REBOLLARDOB: Insurance:SUSIE REBOLLARB: [facility] [id number] [place] [address] Number: E MAIN Repository [place] [phone]: Effective [place] Date:2018-03-27 [id number]: () [id number] Name:[id number] ()Tel: (000) [address] 000[address] ([place]) [place] [address]NN: 02/26/2018 LAKESHIA L Primary LAKESHIA L Lilia LYB: Insurance:1500 YOUNGDOB: [facility] E [place] [id number] System [facility] E MAIN Repository [place] Number: [place] [address]Edk: Date:2017-08-30 [id number]: [id number] () Name:[id number] ()Tel: (000) [address], 000[address] ([place]) [place] [address]WS: 02/03/2018 LAKESHIA L Primary LAKESHIA L Lilia REBOLLARDOB: Insurance:1500 YOUNGDOB: [facility] E [place] [id number] System [facility] [id number]: Number: Effective [facility] [place] Date:2018-02-03 [id number]: () 2059-11-15Csrz Name:[id number] ()Tel: 000) [address] 000[address] ([place]) [place] [address]XQ:
== END ==
PROVIDERS: Referring Provider Obstetrics & Gynecology; Visit Provider Obstetrics & Gynecology
DX: Z34.90 Encounter for supervision of normal pregnancy, unspecified, unspecified trimester (principal)
CPT/HCPCS: 87081

== ENCOUNTER 2018-12-15 22:55 | Inpatient (IN) | payer MEDICAID, SELFPAY ==
[2018-12-12 11:21] VITALS: BMI 30.1
[2018-12-15 23:38] VITALS: BMI 31.7
[2018-12-15 23:55] LABS: Hematocrit 32.3 % (37-47); Hemoglobin 10.7 g/dl (12.0-15.0); Mean Corp Hgb Conc 33.1 g/gl (32-36); Mean Corpuscular Hgb 30.5 pg (27.0-32.0); Platelet Count 195 K/mm3 (150-450); RBC Distribution Width CV 13.3 % (11.6-14.6); Red Blood Count 3.51 M/mm3 (4.2-5.4)
[2018-12-15 23:58] LABS: Scan Indicated on CBC? Y/N NO
--- NOTE | 2018-12-16 01:59 | PCM.HP.OB ---
- Problem List (1) Active labor at term Status: Acute (2) Encounter for screening Status: Acute Comment: Negative QUAD marker screen - patient missed ech appt, nl anatomy scan (3) ASCUS favor benign Status: Acute (4) Family history of Willem-Sachs disease Status: Acute Comment: FOB is carrier- screen negative for patient (5) Tobacco use complicating Status: Acute Qualifiers: Comment: quit! (6) Supervision of normal Status: Acute Qualifiers: Comment: PRR PITER 12/23/18 Boy. PC Chay Chery Ethan boyfriend Vic (4 kids) History Date of Admission: 12/16/18 Final PITER: 12/21/18 Gestational age: 39 Weeks and 2 Days History of this : This is a 28 year-old, at 39 weeks gestational age presents IAL 6-7 cm dilated. she co small vb no lof good fm and regular ctx. she's had an uncomplicated . Surgical History: Surgical History (Last Reviewed 12/12/18 @ 11:21 by Yue Paez) Cyst, dermoid, leg D36.7 Ear canal mass H93.8X9 Allergies amoxicillin Adverse Reaction (Severe, Verified 12/16/18 00:38) Anaphylaxis cefaclor [From Ceclor] Adverse Reaction (Severe, Verified 12/16/18 00:40) Anaphylaxis ciprofloxacin Adverse Reaction (Severe, Verified 12/16/18 00:41) Anaphylaxis codeine Adverse Reaction (Severe, Verified 12/16/18 00:42) Anaphylaxis sulfamethoxazole [From Bactrim] Adverse Reaction (Severe, Verified 12/16/18 00:40) Anaphylaxis trimethoprim [From Bactrim] Adverse Reaction (Severe, Verified 12/16/18 00:40) Anaphylaxis Penicillins Adverse Reaction (Verified 12/15/18 23:40) Anaphylaxis Smoking Status: Former smoker Number of Fetus(es): 1 Heart Tracin moderate variability reactive no decelerations category I tracing [place]: regular History Past Pregnancies: Past Pregnancies\ Pregancy History 4 Elective abortions Hx Para 3 Spontaneous abortions Hx # Term Pregnancies Ectopic pregnancies Hx # Pregnancies Multiple births # of living children Past Pregnancies Del. Date Name GA/Weeks Outcome Route Bth Weight Gen Labor Lgth Anesthesia Del Locatn Provider FOB Unknown Vik 02-03-07 live - full term 6 lbs Unknown Chay 62-10 live - full term 6 lbs Unknown Fortunato 18-12 live - full term 7 lbs OB Visit PITER Calculator Estimated Delivery Date 12/21/18 Based on Ultrasound Date 05/02/18 Current WG 38w 5d Number 1 Expected Infant Delivery Method: Spontaneous Vaginal Describe any other labor & delivery plans:: Specific Issue/Plans. flu vaccine: declines. tdap vaccine: declines. rhogam: na. LARC form signed: declined. labor support person: Vic only if available. pain management: natural. cut cord/dad catch: yes. : yes. PP control planned: considering tubal, porbably OCP Review of Systems Constitutional: Denies: Fever, Malaise Eyes: Denies: Blurred vision, Vision Change HEENT: Denies: Head Aches, Visual Changes Cardiovascular: Denies: Chest Pain, Palpitations Respiratory: Denies: Cough, Shortness of Breath, Wheezing Gastrointestinal: Reports: Abdominal Pain. Denies: Diarrhea, Nausea, Vomiting Genitourinary: Denies: Dysuria, Hematuria Musculoskeletal: Denies: Joint Pain, Muscle pain Skin: Denies: Lesions, Rash Neurological: Denies: Blurred vision, Focal weakness, Headaches Psychiatric: Denies: Anxiety, Depression Endocrine: Denies: Heat/ Cold Intolerance Hematologic/ Lymphatic: Denies: Easy Bruising, Easy Bleeding Physical Exam General: Alert, Cooperative, No apparent distress HEENT: Atraumatic, Normocephalic. Negative for: Thyromegaly, Lymphadenopathy Cardiovascular: Regular rate Lungs: Normal air movement Abdomen: Soft, Non Tender, Gravid Neurological: Deep Tendon Reflexes 2+/4 and Symmetrical, Neuro grossly intact. Negative for: Clonus MACHINE ACCOUNTANT: Normal external genitalia. Negative for: Vulvar lesions Estimated gestational size: Appropriate for gestational size Presentation: Cephalic Cervix Dilation (cm): 6.5 Assessment/Plan All Active Problems (Last Reviewed 12/12/18 @ 11:21 by Yue Paez) Active labor at term (Acute) Encounter for screening (Acute) ASCUS favor benign (Acute) Family history of Willem-Sachs disease (Acute) Tobacco use complicating (Acute) Supervision of normal (Acute) heart deceleration (Resolved) Vomiting (Resolved) This is a 28 year-old, at 39 weeks gestational age presents IAL Patient presents IAL, plan expectant management for , pitocin/AROM PRN if needed. Pain management: minimal intervention planned. GBS negative Management of any complications: none [facility] and made any clinically relevant updates.
[2018-12-16] MEDS: Oxytocin 30 units/NS 500 ml 30 UNITS/500 ML IV.SOLN 334 UNITS IV (02:39)
--- NOTE | 2018-12-16 02:49 | PCM.OB.VAG ---
- Problem List (1) Active labor at term Status: Acute (2) Encounter for screening Status: Acute Comment: Negative QUAD marker screen - patient missed ech appt, nl anatomy scan (3) ASCUS favor benign Status: Acute (4) Family history of Willem-Sachs disease Status: Acute Comment: FOB is carrier- screen negative for patient (5) Tobacco use complicating Status: Acute Qualifiers: Comment: quit! (6) Supervision of normal Status: Acute Qualifiers: Comment: PRR PITER 12/23/18 Boy. Chay Matthews Ethan boyfriend Vic (4 kids) Vaginal Delivery Maternal Presentation: Active Labor 28 yo @ 39 weeks presents IAL Amniotic Membrane Rupture Type: Artificial Amniotic Fluid Description: Clear Final PITER: 12/21/18 Gestational age: 39 Weeks and 2 Days Date of Procedure: 12/16/18 Pre-Operative Diagnosis: ial Post-Operative Diagnosis: same Surgery/ Procedure Performed: Spontaneous Vaginal Delivery Type of Anesthesia: None Description of Procedure: Patient began pushing and delivered the head in the AURE presentation. The head was delivered atraumatically. The anterior and posterior shoulders delivered without complication followed by the rest of the and the was placed on the maternal abdomen. Delayed cord clamping was employed for approximately 60 seconds. Cord was clamped and cut and gentle traction was applied to the cord and the placenta delivered spontaneously immediately following it was noted to be intact with three-vessel cord. The perineum and vagina were inspected and noted to have no laceration. EBL was 200 cc. Patient and tolerated delivery well.
[2018-12-16] MEDS: Oxytocin 30 units/NS 500 ml 30 UNITS/500 ML IV.SOLN 167 UNITS IV (03:09)
[2018-12-16] MEDS: 0.9% Saline Lock 10 ML Syringe IV (04:12)
[2018-12-16 07:45] VITALS: BP 115/58; PULSE 85; RESP 16; TEMP 37.6; O2SAT 94
[2018-12-16 11:41] VITALS: BP 111/63; PULSE 86; RESP 18; TEMP 37
--- NOTE | 2018-12-16 14:50 | PCM.PN.OB ---
Patient Problems: Active and Suspected Problems (Last Reviewed 12/12/18 @ 11:21 by Yue Paez) Active labor at term (Acute) Subjective: doing well no complaints pain controlled no CP SOB N V ambulating well tolerating po lochia moderate, going well - Physical Exam General: Alert, Oriented x3 Vital Signs Temp Pulse Resp BP Pulse Ox 98.6 F 86 18 111/63 94 12/16/18 11:41 12/16/18 11:41 12/16/18 11:41 12/16/18 11:41 12/16/18 07:45 Oxygen Delivery Method Room Air Weight: 162 lb 9.6 oz Body Mass Index (BMI) 31.7 Intake and Output for Last 24 Hours 12/14/18 12/15/18 12/16/18 23:59 23:59 23:59 Output Total 600 / 600 Balance -600 / -600 Laboratory Tests Past 24 Hrs 12/15/18 12/15/18 23:40 23:40 WBC 10.0 RBC 3.51 L Hgb 10.7 L Hct 32.3 L MCV 92.0 MCH 30.5 MCHC 33.1 RDW 13.3 RDW Differential 43.0 Plt Count 195 MPV 10.0 Blood Type O POSITIVE Antibody Screen NEGATIVE Medical Necessity - Tobacco Use Smoking Status: Former smoker Assessment/Plan All Active Problems (Last Reviewed 12/12/18 @ 11:21 by Yue Paez) Active labor at term (Acute) Encounter for screening (Acute) ASCUS favor benign (Acute) Family history of Willem-Sachs disease (Acute) Tobacco use complicating (Acute) Supervision of normal (Acute) heart deceleration (Resolved) Vomiting (Resolved) s/p PPD # 1 1. routine post delivery care 2. breast feeding- support given 3. rh positive 4. rubella immune
[2018-12-16 16:00] VITALS: BP 103/63; PULSE 83; RESP 18; TEMP 37.3
--- NOTE | 2018-12-16 19:34 | NURSING ---
Pt. requested support band for support person who had to leave right after delivery. Support person band found in pt's chart and taken into room. Bands verified with Philipp Hill RN and applied to support person's left wrist.
[2018-12-16 20:44] VITALS: BP 100/56; PULSE 81; RESP 16; TEMP 36.9; O2SAT 95
[2018-12-17 02:40] VITALS: BP 97/48; PULSE 82; RESP 17; TEMP 36.7; O2SAT 96
--- NOTE | 2018-12-17 07:44 | PCM.PN.OB ---
Patient Problems: Active and Suspected Problems (Last Reviewed 12/12/18 @ 11:21 by Yue Paez) Active labor at term (Acute) Subjective: Doing well. No CP, SOB. Denies pain. Plans home today - Physical Exam General: Alert, Oriented x3 Abdomen: Soft, Non Tender, - - FF at U, needs to void. Vital Signs Temp Pulse Resp BP Pulse Ox 98.1 F 82 17 97/48 L 96 12/17/18 02:40 12/17/18 02:40 12/17/18 02:40 12/17/18 02:40 12/17/18 02:40 Oxygen Delivery Method Room Air Weight: 162 lb 9.6 oz Body Mass Index (BMI) 31.7 Intake and Output for Last 24 Hours 12/15/18 12/16/18 12/17/18 23:59 23:59 23:59 Output Total 600 / 600 Balance -600 / -600 Medical Necessity - Tobacco Use Smoking Status: Former smoker Assessment/Plan All Active Problems (Last Reviewed 12/12/18 @ 11:21 by Yue Paez) Active labor at term (Acute) Encounter for screening (Acute) ASCUS favor benign (Acute) Family history of Willem-Sachs disease (Acute) Tobacco use complicating (Acute) Supervision of normal (Acute) heart deceleration (Resolved) Vomiting (Resolved) , PPD#1: Routine care. . Wants BTO. Will discuss with Dr. Veliz. Home today.
--- NOTE | 2018-12-17 07:49 | DCINST_ITS ---
Additional Instructions: If you experience any of the following, contact your healthcare provider. * Bleeding that soaks a pad every hour for 2 hours * Fever 100.4 or higher * Unrelieved incision or abdominal pain * Swelling, redness, discharge or bleeding from your incision or episiotomy site * Your incision begins to separate * Problems urinating (including inability to urinate or burning while urinating). * Visual changes * Severe headache * Flu-like symptoms * Pain or redness in one of both of your breasts * Pain, warmth, tenderness or swelling in your legs, especially the calf area * Frequent nausea and vomiting * Symptoms of depression or anxiety If you experience any of the following, call 911 or go to the nearest Emergency Room. * Chest pain * Problems breathing * Seizure activity * Partial or complete paralysis of a body part, slurred speech, weakness or drooping of the face, or a sudden inability to walk or hold your balance Allergies/Adverse Reactions: Allergies amoxicillin Adverse Reaction (Severe, Verified 12/16/18 00:38) Anaphylaxis cefaclor [From Ceclor] Adverse Reaction (Severe, Verified 12/16/18 00:40) Anaphylaxis ciprofloxacin Adverse Reaction (Severe, Verified 12/16/18 00:41) Anaphylaxis codeine Adverse Reaction (Severe, Verified 12/16/18 00:42) Anaphylaxis sulfamethoxazole [From Bactrim] Adverse Reaction (Severe, Verified 12/16/18 00:40) Anaphylaxis trimethoprim [From Bactrim] Adverse Reaction (Severe, Verified 12/16/18 00:40) Anaphylaxis Penicillins Adverse Reaction (Verified 12/15/18 23:40) Anaphylaxis Test Results: Test results from this visit will be discussed in further detail at your follow- up appointment, if applicable.
--- NOTE | 2018-12-17 07:49 | PCM.DCVAG ---
Additional Instructions: If you experience any of the following, contact your healthcare provider. Bleeding that soaks a pad every hour for 2 hours Fever 100.4 or higher Unrelieved incision or abdominal pain Swelling, redness, discharge or bleeding from your incision or episiotomy site Your incision begins to separate Problems urinating (including inability to urinate or burning while urinating). Visual changes Severe headache Flu-like symptoms Pain or redness in one of both of your breasts Pain, warmth, tenderness or swelling in your legs, especially the calf area Frequent nausea and vomiting Symptoms of depression or anxiety If you experience any of the following, call 911 or go to the nearest Emergency Room. Chest pain Problems breathing Seizure activity Partial or complete paralysis of a body part, slurred speech, weakness or drooping of the face, or a sudden inability to walk or hold your balance Allergies/Adverse Reactions: Allergies amoxicillin Adverse Reaction (Severe, Verified 12/16/18 00:38) Anaphylaxis cefaclor [From Ceclor] Adverse Reaction (Severe, Verified 12/16/18 00:40) Anaphylaxis ciprofloxacin Adverse Reaction (Severe, Verified 12/16/18 00:41) Anaphylaxis codeine Adverse Reaction (Severe, Verified 12/16/18 00:42) Anaphylaxis sulfamethoxazole [From Bactrim] Adverse Reaction (Severe, Verified 12/16/18 00:40) Anaphylaxis trimethoprim [From Bactrim] Adverse Reaction (Severe, Verified 12/16/18 00:40) Anaphylaxis Penicillins Adverse Reaction (Verified 12/15/18 23:40) Anaphylaxis Test Results: Test results from this visit will be discussed in further detail at your follow-up appointment, if applicable.
[2018-12-17 08:14] VITALS: BP 112/66; PULSE 89; RESP 16; TEMP 36.8; O2SAT 98
[2018-12-17 12:27] VITALS: BP 101/71; PULSE 84; RESP 14; TEMP 36.9; O2SAT 96
== END 2018-12-17 12:35 | disposition home or self-care (01) | DRG 560 ==
PROVIDERS: Admitting Provider Obstetrics & Gynecology; Referring Provider Obstetrics & Gynecology; Visit Provider Obstetrics & Gynecology
DX: O80 Encounter for full-term uncomplicated delivery (principal); Z3A.39 39 weeks gestation of pregnancy; Z37.0 Single live birth; Z87.891 Personal history of nicotine dependence
CPT/HCPCS: 59050; 85027; 86850; 86900; 99218; A4216; G0378